=== PATIENT | female | born 1990 | race Caucasian/White ===

== ENCOUNTER 2019-12-28 17:06 | Emergency (ER) | payer OTHER, SELFPAY ==
[2019-12-28] MEDS: LORazepam 2 MG/ML VIAL IM (17:39)
[2019-12-28 17:45] VITALS: BP 111/71; PULSE 90; RESP 18; TEMP 37.1; O2SAT 96; BMI 20.9
[2019-12-28 17:52] VITALS: BP 111/71; PULSE 90; RESP 18; TEMP 37.1; O2SAT 96
[2019-12-28 17:58] VITALS: RESP 18
[2019-12-28 18:25] VITALS: BP 111/71; PULSE 90; RESP 18; TEMP 37.1; O2SAT 96
[2019-12-28 18:51] VITALS: RESP 18
--- NOTE | 2019-12-28 18:52 | PC.NURSE ---
Pt currently asleep. No signs of distress. Respirations even, nonlabored.
--- NOTE | 2019-12-28 20:01 | PC.NURSE ---
sleeping. had been medicated with ativan im at arrival for aggitation. first contact with patient at this time. sleeping. chest rise noted. skin pwd. pct states pt pulled awayduring attempt to obtain labs.
--- NOTE | 2019-12-28 20:57 | PC.NURSE ---
bhn unlikely to be seen until the am.
--- NOTE | 2019-12-28 21:25 | ED.PSYCH ---
HPI - Psych General Chief Complaint: Psychiatric Symptoms Stated Complaint: PSYCH Time Seen by Provider: 12/28/19 17:30 Source: EMS Mode of arrival: EMS Limitations: other ( under the influence of PCP) History of Present Illness HPI Narrative: 29-year-old female with reported history of PCP use as well as bipolar disorder, anxiety / depression who presents via EMS with a PD as core after acting erratically with admitted to using PCP use and she was noted to have her disease dog with her she was caring this dog around yesterday and today she continue with his behavior was picked up by PD and brought to emergency room for further evaluation. Patient has had similar types of visits in the past. Patient offers no medical complaints. Is acting very erratic and disorganized and tearful. Aside from the PCP use denies any alcohol use / recent injury or recent illness. MD complaint: substance abuse Onset (ago): day(s) Duration: intermittent History of same: Yes Relieving factors: therapy and other Exacerbating factors: drug use Context: recent drug abuse Associated symptoms: denies other symptoms Treatments prior to arrival: none Related Data Allergies Allergy/AdvReac Type Severity Reaction Status Date / Time No Known Allergies Allergy Unverified 11/19/19 17:25 sertraline AdvReac Unknown diarrhea Verified 07/21/19 00:00 Celexa Allergy Unknown Panic Uncoded 07/21/19 00:00 attacks Review of Systems Review of Systems: Limited due to her being under the influence of PCP otherwise denies any pain or discomfort. Offers no medical complaints. Yes all other systems are reviewed and are negative PMFSH Past Medical History Attestation statement: The following information was validated with the patient. Social History Social History Advance Directives: No Advance Directives Information Provided: Yes Physical Exam Vital Signs: Vital Signs: Vital Signs Temp Pulse Resp BP Pulse Ox 12/28/19 18:51 18 12/28/19 18:25 98.7 F 90 18 111/71 96 12/28/19 17:58 18 12/28/19 17:52 98.7 F 90 18 111/71 96 12/28/19 17:45 98.7 F 90 18 111/71 96 Body Mass Index 20.9 Reviewed Const: General: cooperative and healthy appearing; No acute distress or intoxicated appearing Nutritional Appearance: average body habitus Orientation/consciousness: patient oriented x3 HENMT: Head: Yes normal to inspection Ears: hearing grossly normal bilaterally Eyes: General: appearance normal, both eyes and all related structures Visual Joy: normal visual joy by confrontation Neck: Neck: Yes normal visual inspection and No tender Thyroid: Thyroid normal Chest: Chest palpation & inspection: normal inspection of the chest Resp: Effort & Inspection: normal respiratory effort Cardio: Jugular venous distension: no JVD GI: Inspection: Yes normal to inspection Percussion: Yes normal to percussion Auscultation: normal bowel sounds : General: Yes no CVA tenderness Back/Spine/Pelvis: Back: no CVA tenderness Skin: General skin exam: no rashes or lesions noted Neuro: General: patient oriented x3 Extrem: General: Yes normal to inspection Course Course Course Narrative: Acting very erratic and tearful. Appears to be responding to internal stimuli with similar type behavior in the past with her PCP Use. Exam atraumatic. Given 2 mg of IM Ativan for agitation/ safety. Medication restraint order placed. Continued redirection. Poses no flight risk at this time. Will check medical screening labs and obtain crisis evaluation once patient is sober. Reevaluation(s) Reevaluation #1: 2130 Has been resting comfortably in no acute distress. Case signed out to night PA at this time pending labs. MDM - Psych Restraints Face to Face Assessment: Face to Face Assessment: Current Situation: After assessment of the patient, a review of the pertinent medical record and a discussion with nursing staff, I feel the patient requires a restrain intervention. Reaction To: [] Medical Condition: [] Behavioral State: [] Continued Need: [] Discharge Plan Discharge Clinical Impression: Depression, Drug-induced psychotic disorder, Acute psychosis
--- NOTE | 2019-12-28 22:26 | PC.NURSE ---
Pt woke briefly for lab work then fell back asleep. Skin pwd. unlabored resp. unable to hold a conversation
[2019-12-28 22:30] LABS: MANUAL DIFF FLAG NO
[2019-12-28 22:34] LABS: Basophils Absolute Auto 0.1 X10*3/uL (0.0-0.2); Basophils Percent Auto 0.8 % (0-2); Eosinophils Absolute Auto 0.1 X10*3/uL (0.0-0.4); Eosinophils Percent Auto 1.8 % (0-4); Hematocrit 39.8 % (37-47); Hemoglobin 13.1 g/dl (12.0-16.0); Imm Gran Abs Auto 0.01 X10*3/uL (0.00-0.03); Imm Gran Pct Auto 0.2 % (0.0-0.4); Lymphocytes Absolute Auto 2.7 X10*3/uL (1.2-4.9); Lymphocytes Percent Auto 40.4 % (20-40); Mean Corpuscular HGB Conc 32.9 g/dl (31.0-35.0); Mean Corpuscular Hemoglobin 31.3 pg (27.0-33.0); Mean Platelet Volume 11.2 fL (9.4-12.3); Monocytes Absolute Auto 0.5 X10*3/uL (0.1-1.2); Monocytes Percent Auto 7.4 % (2-11); Neutrophils Absolute Auto 3.3 X10*3/uL (2.0-8.3); Neutrophils Percent Auto 49.4 % (45-73); Platelet Count 228 X10*3/uL (160-400); Red Blood Count 4.19 X10*6/uL (4.20-5.50); Red Cell Distribution Width 13.3 % (11.0-16.0); White Blood Count 6.6 X10*3/uL (4.8-10.8)
[2019-12-28 22:57] LABS: Ethanol < 10 mg/dL
[2019-12-28 23:00] LABS: Alanine Aminotransferase 22 U/L (0-31); Albumin Level 3.9 g/dL (3.5-5.0); Alkaline Phosphatase 54 U/L (39-117); Anion Gap 10 (12-20); Aspartate Amino Transferase 25 U/L (5-31); Bilirubin Total 0.5 mg/dL (0.0-1.0); Blood Urea Nitrogen 8 mg/dL (9-16); Calcium 8.6 mg/dL (8.4-10.2); Carbon Dioxide 26 mmol/L (22-29); Chloride 108 mmol/L (96-108); Creatinine Clr Calc Pharmacy 108.7; Estimated Glomerular Filt Rate > 60; Glucose Random 91 mg/dL (60-115); Potassium 4.3 mmol/l (3.3-5.1); Sodium 140 mmol/L (135-145); Total Protein 5.7 g/dL (6.5-8.0)
[2019-12-28 23:06] LABS: HCG Quantitative < 2 mIU/mL
[2019-12-29 00:15] VITALS: BP 106/67; PULSE 78; RESP 16; TEMP 36.4; O2SAT 98
--- NOTE | 2019-12-29 00:53 | PC.NURSE ---
KENNEYN meeting with patient at this time.
== END 2019-12-29 02:58 | disposition home or self-care (01) ==
PROVIDERS: Nurse Practitioner Primary Care; Emergency Provider Emergency Medicine Emergency Medical Services
DX: F33.1 Major depressive disorder, recurrent, moderate (principal); F19.959 Other psychoactive substance use, unspecified with psychoactive substance-induced psychotic disorder, unspecified; F16.10 Hallucinogen abuse, uncomplicated; F41.1 Generalized anxiety disorder; F43.0 Acute stress reaction; Z79.899 Other long term (current) drug therapy
CPT/HCPCS: 36415; 80053; 80320; 84702; 85025; 96372; 99284; 99285; J2060

== ENCOUNTER 2020-01-03 03:29 | Emergency (ER) | payer OTHER, SELFPAY ==
[2020-01-03 03:38] VITALS: BP 106/54; PULSE 77; RESP 16; TEMP 36.6; O2SAT 100; BMI 22.6
[2020-01-03 04:22] LABS: MANUAL DIFF FLAG NO
[2020-01-03 04:23] LABS: Basophils Percent Auto 0.5 % (0-2); Eosinophils Percent Auto 0.1 % (0-4); Hematocrit 39.6 % (37-47); Hemoglobin 12.9 g/dl (12.0-16.0); Imm Gran Abs Auto 0.02 X10*3/uL (0.00-0.03); Imm Gran Pct Auto 0.3 % (0.0-0.4); Lymphocytes Absolute Auto 1.2 X10*3/uL (1.2-4.9); Lymphocytes Percent Auto 14.6 % (20-40); Mean Corpuscular HGB Conc 32.6 g/dl (31.0-35.0); Mean Corpuscular Hemoglobin 31.2 pg (27.0-33.0); Mean Corpuscular Volume 95.7 fL (80-98); Mean Platelet Volume 11.6 fL (9.4-12.3); Monocytes Absolute Auto 0.4 X10*3/uL (0.1-1.2); Monocytes Percent Auto 5.4 % (2-11); Neutrophils Absolute Auto 6.3 X10*3/uL (2.0-8.3); Neutrophils Percent Auto 79.1 % (45-73); Platelet Count 233 X10*3/uL (160-400); Red Blood Count 4.14 X10*6/uL (4.20-5.50); Red Cell Distribution Width 13.1 % (11.0-16.0)
--- NOTE | 2020-01-03 04:26 | PC.NURSE ---
PT YELLING AT DR HARRINGTON WHO WAS IN EVALUATING PT IN THE NEXT ROOM OVER, PT HAD CELLPHONE OUT AND APPEARED TO BE RECORDING A VIDEO, SECURITY CALLED AND AT BEDSIDE TO INVESTIGATE, PT GETTING UPSET AND SPEAKING ABOUT HER MOTHER WHO RECENTLY PASSED ABOUT 1 MONTH AGO, PT CONTINUES TO MAKE CALLS WITH CELL PHONE AND IS VERBALLY AGGRESSIVE AND LOUD. SECURITY AND NURSE LUIS AT BEDSIDE TO DEESCALATE, PT AGREEABLE TO STAY OF RIGHT NOW WHILE WAITING FOR BLOOD DRAWS AND URINE SAMPLE.
--- NOTE | 2020-01-03 04:35 | PC.NURSE ---
PT WALKING OUT OF ROOM GETTING VERBALLY AGGRESSIVE ONCE AGAIN, PT YELLING TO NURSING STAFF STATING YOU GUYS WANT ME TO LEAVE, YOU DO NOT WANT ME HERE, I AM GOING TO LEAVE. LUIS RN SPEAKING WITH PT ALONG WITH [place]. PT DEESCALATING AND WANTING TO AMBULATE TO BATHROOM, SEEN WALKING WITH SLOW STEADY GAIT. PT ASSISTED TO ORDER PICKER INTO MESH UNDERWEAR AND PAD TO MEASURE BLEEDING. PT CONTINUES TO YELL ABOUT PAIN AND DISCOMFORT ALONG WITH I AM BLEEDING A LOT, I AM MISCARRYING!!
[2020-01-03 04:40] LABS: Alanine Aminotransferase 25 U/L (0-31); Albumin Level 4.2 g/dL (3.5-5.0); Alkaline Phosphatase 57 U/L (39-117); Anion Gap 15 (12-20); Aspartate Amino Transferase 30 U/L (5-31); Bilirubin Total 0.5 mg/dL (0.0-1.0); Blood Urea Nitrogen 9 mg/dL (9-16); Calcium 8.7 mg/dL (8.4-10.2); Carbon Dioxide 25 mmol/L (22-29); Chloride 104 mmol/L (96-108); Creatinine Clr Calc Pharmacy 112.1; Estimated Glomerular Filt Rate > 60; Glucose Random 100 mg/dL (60-115); Potassium 3.6 mmol/l (3.3-5.1); Sodium 140 mmol/L (135-145); Total Protein 6.2 g/dL (6.5-8.0)
[2020-01-03 04:47] LABS: HCG Quantitative < 2 mIU/mL
[2020-01-03] MEDS: Ibuprofen 400 MG TABLET PO (05:09)
[2020-01-03] MEDS: Acetaminophen 325 MG TABLET 975 MG PO (05:10)
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
== END 2020-01-03 05:22 | disposition home or self-care (01) ==
PROVIDERS: Emergency Provider Student in an Organized Health Care Education/Training Program; PCP Internal Medicine
DX: N94.4 Primary dysmenorrhea (principal)
CPT/HCPCS: 36415; 80053; 84702; 85025; 99283

== ENCOUNTER 2020-01-07 16:11 | Inpatient (IN) | payer OTHER, SELFPAY ==
[2020-01-07 16:31] VITALS: BP 114/55; PULSE 76; RESP 20; TEMP 36.6; O2SAT 100; BMI 21.6
[2020-01-07 16:35] VITALS: BP 114/55; PULSE 76; RESP 20; TEMP 36.6; O2SAT 100
[2020-01-07 17:29] LABS: UPreg QC Valid YES; Urine Pregnancy NEGATIVE (NEGATIVE)
[2020-01-07 17:47] LABS: Amphetamine Screen Urine Not Detected (Not Detect); Barbiturates, Urine Not Detected (Not Detect); Benzodiazepines Screen Urine Not Detected (Not Detect); Cannabinoid Screen Urine POSITIVE (Not Detect); Cocaine Screen Urine Not Detected (Not Detect); Opiate Screen Urine Not Detected (Not Detect); Phencyclidine Screen Urine POSITIVE (Not Detect)
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
[2020-01-07] MEDS: LORazepam 1 MG TABLET 2 MG PO (18:10)
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
--- NOTE | 2020-01-07 19:14 | PC.NURSE ---
Report received. PT is walking around the unit, tearful and fearful at this time. Talking to staff about being afraid of leaving here and what will happen to her if she does. No specifics were mentioned.
--- NOTE | 2020-01-07 20:32 | PC.NURSE ---
[facility] faxed and called. [facility] stated that someone would be here to see the patient after 11 PM.
[2020-01-07 22:29] VITALS: BP 109/61; PULSE 60; RESP 16; TEMP 36.1; O2SAT 95
[2020-01-08 00:24] VITALS: BP 100/56; PULSE 78; RESP 18; TEMP 36.3; O2SAT 98
--- NOTE | 2020-01-08 00:26 | PC.NURSE ---
PT woke up from sleep. Tearful and states that she is fearful for the safety of her father.
--- NOTE | 2020-01-08 02:08 | ECG_ITS ---
Test Reason : BASELINE Blood Pressure : / mmHG Vent. Rate : 069 BPM Atrial Rate : 069 BPM P-R Int : 138 ms QRS Dur : 076 ms QT Int : 364 ms P-R-T Axes : 000 035 024 degrees QTc Int : 390 ms Normal sinus rhythm Early repolarization Normal ECG When compared with ECG of 30-JUL-2015 15:48, No significant change was found Referred By: Pamela Garber Electronically Signed By:YEMI JAIME MD
[2020-01-08 06:25] LABS: SARS COV2 PCR INHOUSE NEGATIVE (Negative)
--- NOTE | 2020-01-08 06:29 | PC.NURSE ---
PT woke up from sleep and immediately approached the door of room 2. PT was asked to move away from the door and responded with some resistance. PT was able to be redirected after a quick conversation. PT waiting to be transferred to .
[2020-01-08 06:41] VITALS: BP 149/78; PULSE 86; RESP 18; TEMP 36.3; O2SAT 97
--- NOTE | 2020-01-08 09:12 | HO.PSYADMNOT ---
HPI Chief Complaint: Psychosis Diagnostics Vital Signs (24Hr): Vital Signs - 24 hr 01/07/20 16:31 01/07/20 16:35 01/07/20 22:29 Temperature 97.8 F 97.8 F 97 F Pulse Rate 76 76 60 Respiratory Rate 20 20 16 Blood Pressure 114/55 L 114/55 L 109/61 Pulse Oximetry 100 100 95 01/08/20 00:24 01/08/20 06:41 Temperature 97.3 F 97.3 F Pulse Rate 78 86 Respiratory Rate 18 18 Blood Pressure 100/56 L 149/78 H Pulse Oximetry 98 97 Body Mass Index 21.6 Labs Labs: Laboratory Results - last 48 hr 01/07/20 01/07/20 01/08/20 16:59 17:00 04:48 Urine Test NEGATIVE Urine Opiates Screen Not Detected Ur Barbiturates Screen Not Detected Ur Phencyclidine Scrn POSITIVE H Ur Amphetamines Screen Not Detected U Benzodiazepines Scrn Not Detected Urine Cocaine Screen Not Detected U Marijuana (THC) Screen POSITIVE H Coronavirus (PCR) NEGATIVE Meds/Allergies Meds Home Medications Medication Instructions Recorded Confirmed Type No Known Home Meds 01/07/20 01/07/20 History Allergies Allergies Allergy/AdvReac Type Severity Reaction Status Date / Time No Known Allergies Allergy Unverified 11/19/19 17:25 sertraline AdvReac Unknown diarrhea Verified 07/21/19 00:00 Celexa Allergy Unknown Panic Uncoded 07/21/19 00:00 attacks
[2020-01-08 09:15] VITALS: BP 103/55; PULSE 81; TEMP 36.3
[2020-01-08] MEDS: Benztropine Mesylate 2 MG/2 ML VIAL 1 MG IM (10:48)
[2020-01-08] MEDS: Haloperidol Lactate 5 MG/ML VIAL IM (10:48)
[2020-01-08] MEDS: LORazepam 2 MG/ML VIAL IM (10:49)
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
--- NOTE | 2020-01-08 14:53 | PC.NURSE ---
AT 1130 PT BEGAN RUNNING UP AND DOWN THE UNIT JUMPING AND SWINGING ARMS. PT SCREAMING , GET ME THE F-CK OFF THIS UNIT. SEVERAL ATTEMPTS TO ASSIST PT TO A QUIET SPACE FOR PROCESS WERE MADE. PT UNABLE TO TAKE ANY REDIRECTION. PT CONTINUED TO SWEAR AND THREATEN STAFF TO GET OFF OFF THE UNIT. PT BRINGING UP TRAUMA AND YELLING AT STAFF, YOU DON'T KNOW ANYTHING'. PT PUNCHING DOORS, AGGRESSIVELY POSTURING AT STAFF. SECURITY NOTIFIED AND ON THE UNIT.PT SCARING OTHER PATIENTS AND CONTINUED TO RUN AND JUMP IN THE HALLWAY SWINGING ARMS AND FEET IN AN UNCONTROLLED ANGER. SECURITY ABLE TO TALK TO PT IN THE PRIVACY OF HER ROOM. PT THEN YELLING ABOUT HER TRAUMA, PULLING OFF HER PANTS SHOWING STAFF HER BRUISES AND THE STITCHES IN HER LIP. AWARE AND ORDERED MEDICATION RESTRAINT; HALDOL 5MG,ATIVAN 2, AND 1 COGENTIN IM. PT WAS INFORMED AND SAID, GIVE ME THE SHOT. PT TOOK IM WITHOUT DIFFICULTY. PT TEARFUL AND DISCUSSING TRAUMA. PT CALMED ,ATE HER MEAL AND RESTED THE REMAINDER OF THE SHIFT.
[2020-01-08 18:00] VITALS: RESP 18
[2020-01-09] MEDS: LORazepam 1 MG TABLET PO ×2 (07:56→17:39)
[2020-01-09] MEDS: Acetaminophen 325 MG TABLET 650 MG PO (08:16)
[2020-01-09 08:38] VITALS: BP 126/59; PULSE 79; TEMP 36.7; O2SAT 97
[2020-01-09] MEDS: Haloperidol Lactate 5 MG/ML VIAL IM ×2 (10:23→15:15)
[2020-01-09] MEDS: Benztropine Mesylate 2 MG/2 ML VIAL 1 MG IM ×2 (10:24→15:15)
[2020-01-09] MEDS: LORazepam 2 MG/ML VIAL IM ×2 (10:24→15:15)
--- NOTE | 2020-01-09 15:08 | P.PNPSI_ITS ---
Subjective Subjective Date of Service: 01/09/20 Reason For Visit: Psychosis Subjective Notes: Section 12B Interim History: Deanna was loud, agitated and yelling for most of the morning. She was insistent that she needed to leave immediately, screaming about her chi ldren and that no body cares. She was threatening toward staff and this pattern chart writer at around 10am. She is unable to be redirected, running up and down the hallways and scaring other patients. As a result of this behavior, she received Haldol 5mg im, Ativan 2mg im and Cogentin 1mg im. She was seen within half an hour. She was slightly calmer, but still focuses on leaving the hospital right away. Medication Compliance: No Side effects from medications: No Attending Groups: No Review of Systems Acute medical concerns: No Medical Review of Systems: unchanged Mental Status Exam Mental Status Exam Patient Appearance: Inappropriate and Unkempt Patient Orientation: Person Level of Consciousness: Restless, Inappropriate and Combative Patient Behavior: Aggressive, Restless, Belligerent and Impulsive Mood Description: Hostile and Labile Affect Description: Angry Ability to Follow Directions: Poor Speech Pattern: Loud, Pressured and Includes Profanity Hallucinations: None Delusions: Paranoid Ideation, Present (Someone is coming after her children) and Ideas of Reference Thought Process: Rumination Thought Content: positive for Disorganized and positive for Suicidal Ideation (running into traffic) Abnormal Motor Activity Signs and Symptoms: Aggression Judgement: Poor Diagnostics Vital Signs (24Hr): Vital Signs - 24 hr 01/08/20 18:00 01/09/20 08:38 Temperature 98.1 F Pulse Rate 79 Respiratory Rate 18 Blood Pressure 126/59 L Pulse Oximetry 97 Body Mass Index 21.6 Labs Labs: Laboratory Results - last 48 hr 01/07/20 01/07/20 01/08/20 16:59 17:00 04:48 Urine Test NEGATIVE Urine Opiates Screen Not Detected Ur Barbiturates Screen Not Detected Ur Phencyclidine Scrn POSITIVE H Ur Amphetamines Screen Not Detected U Benzodiazepines Scrn Not Detected Urine Cocaine Screen Not Detected U Marijuana (THC) Screen POSITIVE H Coronavirus (PCR) NEGATIVE Medications Medications Current Medications Generic Name Dose Route Start Last Admin Trade Name Freq PRN Reason Stop Dose Admin Acetaminophen 650 mg 01/08/20 09:13 01/09/20 08:16 Acetaminophen 325 Mg Tablet PO 650 mg Q6H PRN Administration Headache/Pain Mild Scale (1-3) Al Hydroxide/Mg Hydroxide 30 ml 01/08/20 09:13 Magnesium Hydrox/Alum Hydrox 30 Ml Oral.Susp PO Q6H PRN Heartburn/Nausea Benztropine Mesylate 1 mg 01/09/20 15:05 Benztropine Mesylate 2 Mg/2 Ml Vial IM 01/09/20 15:06 STAT STA Haloperidol 5 mg 01/09/20 12:00 01/09/20 14:05 Haloperidol 5 Mg Tablet PO Not Given BID VINCE Haloperidol 5 mg 01/09/20 11:51 Haloperidol 5 Mg Tablet PO Q4H PRN Anxiety Haloperidol Lactate 5 mg 01/09/20 15:05 Haloperidol Lactate 5 Mg/Ml Vial IM 01/09/20 15:06 STAT STA Hydroxyzine HCl 25 mg 01/08/20 09:13 Hydroxyzine Hcl 25 Mg Tablet PO BEDTIME PRN Anxiety Ibuprofen 600 mg 01/09/20 12:30 Ibuprofen 600 Mg Tablet PO Q6H PRN Pain, Moderate (Pain Scale 4-6 Lorazepam 1 mg 01/08/20 06:43 01/09/20 07:56 Lorazepam 1 Mg Tablet PO 1 mg RQ4H PRN Administration Anxiety Lorazepam 1 mg 01/09/20 21:00 Lorazepam 1 Mg Tablet PO BID VINCE Lorazepam 1 mg 01/09/20 11:51 Lorazepam 1 Mg Tablet PO Q4H PRN Anxiety Lorazepam 2 mg 01/09/20 15:05 Lorazepam 2 Mg/Ml Vial IM 01/09/20 15:06 STAT STA Magnesium Hydroxide 30 ml 01/08/20 09:13 Milk Of Magnesia 30 Ml Oral.Susp PO DAILY PRN Constipation Trazodone HCl 50 mg 01/08/20 09:13 Trazodone Hcl 50 Mg Tablet PO BEDTIME PRN Insomnia Allergies Allergies Allergy/AdvReac Type Severity Reaction Status Date / Time No Known Allergies Allergy Unverified 11/19/19 17:25 sertraline AdvReac Unknown diarrhea Verified 07/21/19 00:00 Celexa Allergy Unknown Panic Uncoded 07/21/19 00:00 attacks Assessment & Plan Assessment & Plan (1) PCP (phencyclidine) abuse: Status: Acute Code(s): F16.10 - Hallucinogen abuse, uncomplicated Assessment and Plan: Haldol 5mg po bid Ativan 1mg po bid Im restraint if needed for safety (2) Acute psychosis: Status: Acute Code(s): F23 - Brief psychotic disorder Greater than 50% of the session was spent on counseling and/or coordination of care Patient educated on: diagnosis, medication risk/benefits and substance abuse Informed Consent: does not understand Reason for contiued inpatient stay Substantial Risk for: harm to self and harm to others
[2020-01-09 15:30] VITALS: BP 119/58; PULSE 101; RESP 16; TEMP 36.7
[2020-01-09 15:45] VITALS: RESP 16
[2020-01-09 16:00] VITALS: BP 114/59; PULSE 82; RESP 16; TEMP 36.9; O2SAT 100
--- NOTE | 2020-01-09 16:13 | PM.EVENT ---
Event Note Date of Service: 01/09/2020 Event Note: [employer] Message received from VIOLET Kirk @ 345pm that patient needed to be seen prior to 415pm as she was given chemical restraint. Pt seen and examined on M5 at 410pm. In her room initially. Examined in the medical examination room with VIOLET Kirk present. Pt denies any medical complaints. Denies any pain Exam Gen - NAD HEENT - PERRL CVS - S1S2 Lungs - clear, no distress Abd - soft, non-tender Neuro - no focal deficits A/P 29 yo F admitted on M5 under section 12b for psychosis. Hospitalist called to see patient for chemical restaraint. At this time, pt seem medically stable without concerns. Continue monitoring her per protocol.
[2020-01-09 16:15] VITALS: BP 113/63; PULSE 84; RESP 16; TEMP 36.7; O2SAT 97
[2020-01-09] MEDS: Flu Vacc QS2020-21(6mos up)/PF 0.5 ML SYRINGE IM (17:12)
[2020-01-09 17:21] VITALS: BP 94/52; PULSE 60; TEMP 36.3
[2020-01-09] MEDS: HaloperidoL 5 MG TABLET PO (17:39)
--- NOTE | 2020-01-09 17:57 | PC.NURSE ---
AT 0700 WHEN THIS REGULATORY SUBMISSIONS SPECIALIST CAME ON TO THE UNIT, PT WAS IN THE HALLWAY YELLING AT STAFF THAT SHE WANTED TO BE DISCHARGED, STATING, BECAUSE YOU BITCHES CAN'T DO YOUR JOBS AND CARE ABOUT THE FACT I'M LOSING MY HOUSING AND I NEED TO GET THE FUCK OUT OF HERE AND YO NEED TO MAKE THAT HAPPEN OR YOU'RE GOING TO SEE THAT DOOR SMASHED DOWN AND SOMEONE'S GETTING HURT ...PT CONINUED ON THIS RHETORIC INTERMITTENLY FOR THREE HOURS, AT TIMES SHE WAS ABLE TO BE RE-DIRECTED AND TO KEEP FROM YELLING, SHE ACCEPTED A PRN MEDICATION WITH LITTLE EFFECT. PT BECAME MORE AGITATED AFTER A CONVERSATION WITH THE DOCTOR, AT WHICH POINT SHE BECAME VERBALLY THREATENING TO THE DOCTOR AND STATED, I'M NOT LETTING YOU LEAVE UNTIL I FUCKING LEAVE . PT WOULD NOT BE RE-DIRECTED OR ACCEPT ORAL MEDICATIONS, PT CAUSING MUCH ANXIETY IN THE MILEU, GIVEN HALDOL 5MG, ATIVAN 2MG AND COJENTIN 1MG ALL IM AND WITH GOOD EFFECT. PT SLEPT FOR ONE HOUR, REFUSED ALL VITAL SIGNS, GOT UP, YELLED AT STAFF FOR 20 MINUTES AND RETURED TO BED TO SLEEP. SHE WAS LATER GIVEN REFRESHMENTS AND LUNCH WHICH SHE ATE.
[2020-01-10] MEDS: Ibuprofen 600 MG TABLET PO (04:44)
[2020-01-10] MEDS: LORazepam 1 MG TABLET PO ×4 (04:45→22:40)
[2020-01-10] MEDS: HaloperidoL 5 MG TABLET PO ×4 (04:45→22:41)
[2020-01-10 05:45] VITALS: BP 86/49; PULSE 80; RESP 16; TEMP 36.6
[2020-01-10] MEDS: LORazepam 2 MG/ML VIAL IM (11:35)
[2020-01-10] MEDS: Benztropine Mesylate 2 MG/2 ML VIAL 1 MG IM (11:35)
[2020-01-10] MEDS: Haloperidol Lactate 5 MG/ML VIAL IM (11:35)
--- NOTE | 2020-01-10 11:46 | HO.PSYCHPN ---
Subjective Subjective Date of Service: 01/10/20 Reason For Visit: Psychosis Interim History: Deanna has continued to be very volatile with angry and explosive outbursts about the desire to get out of the hospital. She started screaming that her father has been killed and she could not calm enough to have a rational conversation. She did give the phone number of her father's GF to staff. The GF confirmed that she has no knowledge that Deanna's father has been harmed and that she saw him at 11pm last night. She agreed to call the unit next time she sees him. Lela Buckley RN was able to leave a message for another collateral contact. In the meantime Deanna continued to escalate and was leaning over the nurses station menacingly. Because of her incessant yelling, her threats and her refusing to move away from the desk, she was in need of medication restraint. She was seen half hour after restraint and was significantly calmer. Medication Compliance: Intermittent Side effects from medications: No Attending Groups: No Review of Systems Acute medical concerns: No Medical Review of Systems: unchanged Mental Status Exam Mental Status Exam Patient Appearance: Inappropriate and Unkempt Patient Orientation: Person Level of Consciousness: Restless, Inappropriate and Combative Patient Behavior: Aggressive, Restless, Belligerent and Impulsive Mood Description: Hostile and Labile Affect Description: Angry Ability to Follow Directions: Poor Speech Pattern: Loud, Pressured and Includes Profanity Hallucinations: None Delusions: Paranoid Ideation, Present (Someone is coming after her children) and Ideas of Reference Thought Process: Rumination Thought Content: positive for Disorganized, positive for Suicidal Ideation (running into traffic) and positive for Homicidal Ideation Abnormal Motor Activity Signs and Symptoms: Aggression Judgement: Poor Diagnostics Vital Signs (24Hr): Vital Signs - 24 hr 01/09/20 15:30 01/09/20 15:45 01/09/20 16:00 Temperature 98.1 F 98.5 F Pulse Rate 101 H 82 Respiratory Rate 16 16 16 Blood Pressure 119/58 L 114/59 L Pulse Oximetry 100 01/09/20 16:15 01/09/20 17:21 01/10/20 05:45 Temperature 98.0 F 97.3 F 97.8 F Pulse Rate 84 60 80 Respiratory Rate 16 16 Blood Pressure 113/63 94/52 L 86/49 L Pulse Oximetry 97 Body Mass Index 21.6 Medications Medications Current Medications Generic Name Dose Route Start Last Admin Trade Name Freq PRN Reason Stop Dose Admin Acetaminophen 650 mg 01/08/20 09:13 01/09/20 08:16 Acetaminophen 325 Mg Tablet PO 650 mg Q6H PRN Administration Headache/Pain Mild Scale (1-3) Al Hydroxide/Mg Hydroxide 30 ml 01/08/20 09:13 Magnesium Hydrox/Alum Hydrox 30 Ml Oral.Susp PO Q6H PRN Heartburn/Nausea Haloperidol 5 mg 01/09/20 12:00 01/10/20 09:52 Haloperidol 5 Mg Tablet PO 5 mg BID VINCE Administration Haloperidol 5 mg 01/09/20 11:51 01/10/20 04:45 Haloperidol 5 Mg Tablet PO 5 mg Q4H PRN Administration Anxiety Hydroxyzine HCl 25 mg 01/08/20 09:13 Hydroxyzine Hcl 25 Mg Tablet PO BEDTIME PRN Anxiety Ibuprofen 600 mg 01/09/20 12:30 01/10/20 04:44 Ibuprofen 600 Mg Tablet PO 600 mg Q6H PRN Administration Pain, Moderate (Pain Scale 4-6 Lorazepam 1 mg 01/08/20 06:43 01/09/20 17:39 Lorazepam 1 Mg Tablet PO 1 mg RQ4H PRN Administration Anxiety Lorazepam 1 mg 01/09/20 21:00 01/10/20 09:51 Lorazepam 1 Mg Tablet PO 1 mg BID VINCE Administration Lorazepam 1 mg 01/09/20 11:51 01/10/20 04:45 Lorazepam 1 Mg Tablet PO 1 mg Q4H PRN Administration Anxiety Magnesium Hydroxide 30 ml 01/08/20 09:13 Milk Of Magnesia 30 Ml Oral.Susp PO DAILY PRN Constipation Trazodone HCl 50 mg 01/08/20 09:13 Trazodone Hcl 50 Mg Tablet PO BEDTIME PRN Insomnia Allergies Allergies Allergy/AdvReac Type Severity Reaction Status Date / Time No Known Allergies Allergy Unverified 11/19/19 17:25 sertraline AdvReac Unknown diarrhea Verified 07/21/19 00:00 Celexa Allergy Unknown Panic Uncoded 07/21/19 00:00 attacks Assessment & Plan Assessment & Plan (1) Acute psychosis: Status: Acute Code(s): F23 - Brief psychotic disorder (2) PCP (phencyclidine) abuse: Status: Acute Code(s): F16.10 - Hallucinogen abuse, uncomplicated (3) Cannabis abuse with cannabis-induced disorder: Status: Acute Code(s): F12.19 - Cannabis abuse with unspecified cannabis-induced disorder Assessment and Plan: Remains belligerent and insisting that she is in danger. Thus far we have found no evidence to support this. Haldol 5mg im, Ativan 2mg im and Cogentin 1mg im given as restraint. CT haldol and ativan as standing orders Greater than 50% of the session was spent on counseling and/or coordination of care
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
[2020-01-10] MEDS: Acetaminophen 325 MG TABLET 650 MG PO (22:41)
[2020-01-11 05:39] VITALS: BP 86/54; PULSE 66; RESP 16; TEMP 36.8; O2SAT 100
--- NOTE | 2020-01-11 07:11 | HO.PSYCHPN ---
Subjective Subjective Reason For Visit: Psychosis Diagnostics Vital Signs (24Hr): Vital Signs - 24 hr 01/11/20 05:39 Temperature 98.3 F Pulse Rate 66 Respiratory Rate 16 Blood Pressure 86/54 L Pulse Oximetry 100 Body Mass Index 21.6 Medications Medications Current Medications Generic Name Dose Route Start Last Admin Trade Name Freq PRN Reason Stop Dose Admin Acetaminophen 650 mg 01/08/20 09:13 01/10/20 22:41 Acetaminophen 325 Mg Tablet PO 650 mg Q6H PRN Administration Headache/Pain Mild Scale (1-3) Al Hydroxide/Mg Hydroxide 30 ml 01/08/20 09:13 Magnesium Hydrox/Alum Hydrox 30 Ml Oral.Susp PO Q6H PRN Heartburn/Nausea Haloperidol 5 mg 01/09/20 12:00 01/10/20 22:41 Haloperidol 5 Mg Tablet PO 5 mg BID VINCE Administration Haloperidol 5 mg 01/09/20 11:51 01/10/20 14:40 Haloperidol 5 Mg Tablet PO 5 mg Q4H PRN Administration Anxiety Hydroxyzine HCl 25 mg 01/08/20 09:13 Hydroxyzine Hcl 25 Mg Tablet PO BEDTIME PRN Anxiety Ibuprofen 600 mg 01/09/20 12:30 01/10/20 04:44 Ibuprofen 600 Mg Tablet PO 600 mg Q6H PRN Administration Pain, Moderate (Pain Scale 4-6 Lorazepam 1 mg 01/08/20 06:43 01/10/20 14:39 Lorazepam 1 Mg Tablet PO 1 mg RQ4H PRN Administration Anxiety Lorazepam 1 mg 01/09/20 21:00 01/10/20 22:40 Lorazepam 1 Mg Tablet PO 1 mg BID VINCE Administration Lorazepam 1 mg 01/09/20 11:51 01/10/20 04:45 Lorazepam 1 Mg Tablet PO 1 mg Q4H PRN Administration Anxiety Magnesium Hydroxide 30 ml 01/08/20 09:13 Milk Of Magnesia 30 Ml Oral.Susp PO DAILY PRN Constipation Trazodone HCl 50 mg 01/08/20 09:13 Trazodone Hcl 50 Mg Tablet PO BEDTIME PRN Insomnia Allergies Allergies Allergy/AdvReac Type Severity Reaction Status Date / Time No Known Allergies Allergy Unverified 11/19/19 17:25 sertraline AdvReac Unknown diarrhea Verified 07/21/19 00:00 Celexa Allergy Unknown Panic Uncoded 07/21/19 00:00 attacks Assessment & Plan Greater than 50% of the session was spent on counseling and/or coordination of care
[2020-01-11] MEDS: HaloperidoL 5 MG TABLET PO (08:41)
[2020-01-11] MEDS: LORazepam 1 MG TABLET PO (08:41)
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
== END 2020-01-11 11:13 | disposition home or self-care (01) | DRG 885 ==
LOC: HO.ED 01-08 02:26 → HO.PM5 01-08 06:44
PROVIDERS: Nurse Practitioner Family; Admitting Provider Psychiatry & Neurology Psychiatry; Emergency Provider Internal Medicine; Visit Provider Psychiatry & Neurology Psychiatry
DX: F23 Brief psychotic disorder (principal); F16.10 Hallucinogen abuse, uncomplicated; Z23 Encounter for immunization; Z20.828 Contact with and (suspected) exposure to other viral communicable diseases; F12.10 Cannabis abuse, uncomplicated; F17.210 Nicotine dependence, cigarettes, uncomplicated; Z71.6 Tobacco abuse counseling
CPT/HCPCS: 80307; 81025; 90686; 93005; 99223; 99239; 99284; 99285; J0515; J2060; U0003

== ENCOUNTER 2020-01-11 15:32 | Emergency (ER) | payer OTHER, SELFPAY ==
[2020-01-11 15:51] VITALS: BP 105/62; PULSE 100; PULSE 105; RESP 16; TEMP 36.6; O2SAT 97; O2SAT 98; BMI 20.7
--- NOTE | 2020-01-11 16:33 | ED_ITS ---
HPI - Overdose General Chief Complaint: ETOH/Substance Use Stated Complaint: substance abuse Time Seen by Provider: 01/11/20 16:33 Source: EMS Mode of arrival: EMS Limitations: no limitations History of Present Illness HPI Narrative: Acting bizarre after using PCP. Treatments Prior to Arrival: none Related Data Previous Rx's Medication Instructions Recorded benztropine 1 mg PO Q6-8H PRN 30 Days #30 tab 01/11/20 haloperidol 5 mg PO Q6-8H PRN 30 Days #30 tab 01/11/20 Allergies Allergy/AdvReac Type Severity Reaction Status Date / Time No Known Allergies Allergy Verified 01/11/20 16:10 sertraline AdvReac Unknown diarrhea Verified 07/21/19 00:00 Celexa Allergy Unknown Panic Uncoded 07/21/19 00:00 attacks Review of Systems Review of Systems: Constitutional: No Weight loss, No Fever, No Chills, No Night Sweats, No Fatigue, No Malaise ENT/Mouth: No Hearing loss, No Ear Pain, No Nasal Congestion, No Sinus Pain, No Hoarseness, No sore throat, No Rhinorrhea, No Swallowing Difficulty Eyes: No Eye Pain, No Swelling, No Redness, No Foreign Body, No Discharge, No Vision Changes Cardiovascular: No Chest Pain, No SOB, No Dyspnea on Exertion, No Orthopnea, No Edema, No Palpitations Respiratory: No Cough, No Sputum, No Wheezing, No Smoke Exposure, No Dyspnea Gastrointestinal: No Nausea, No Vomiting, No Diarrhea, No Constipation, No abdominal Pain, No Hematochezia, No Melena Genitourinary: no irregular bleeding, No Dysuria, No Urinary Frequency, No Hematuria, No Urinary Incontinence, No Urgency, No Flank Pain, No Urinary Flow Changes, No Hesitancy Musculoskeletal: No joint pain, No Myalgias, No Joint Swelling Skin: No Skin Lesions, No rash Neuro: No Weakness, No Numbness, No Paresthesias, No Loss of Consciousness, No Dizziness, No Headache Psych: No Anxiety/Panic, No Depression, No SI/HI/AH/VH Heme/Lymph: No Bruising, No Bleeding,No Lymphadenopathy Endocrine: No Polyuria, No Polydipsia, No Temperature Intolerance Yes all other systems are reviewed and are negative [facility] Past Medical History Attestation statement: The following information was validated with the patient. Medical History (Updated 01/11/20 @ 16:35 by Omar Patten NP) Bipolar disorder, unspecified Social History Social History Household Members: None Housing: Apartment Alcohol intake: unknown Smoking Status: Current every day smoker Tobacco Type: Cigarette Packs Per Day: 10 Cigarettes Per Day: 0.5 Second Hand Smoke Exposure: No Substance Use Type: Marijuana Advance Directives: No Advance Directives Information Provided: Yes service: No Sexual orientation: Straight/Heterosexual Physical Exam Vital Signs: Vital Signs: Last Vital Signs Temp 97.9 F 01/11/20 15:51 Pulse 100 01/11/20 15:51 Resp 16 01/11/20 15:51 BP 105/62 01/11/20 15:51 Pulse Ox 98 01/11/20 15:51 Body Mass Index 20.7 Reviewed Const: General: cooperative and healthy appearing; No acute distress or intoxicated appearing Nutritional Appearance: average body habitus Orientation/consciousness: patient oriented x3 HENMT: Head: Yes normal to inspection Ears: hearing grossly normal bilaterally Eyes: General: appearance normal, both eyes and all related structures Visual Joy: normal visual joy by confrontation Neck: Neck: Yes normal visual inspection and No tender Thyroid: Thyroid normal Chest: Chest palpation & inspection: normal inspection of the chest Resp: Effort & Inspection: normal respiratory effort Cardio: Jugular venous distension: no JVD GI: Inspection: Yes normal to inspection Percussion: Yes normal to percussion Auscultation: normal bowel sounds : General: Yes no CVA tenderness Back/Spine/Pelvis: Back: no CVA tenderness Skin: General skin exam: no rashes or lesions noted Neuro: General: patient oriented x3 Extrem: General: Yes normal to inspection Course Course Course Narrative: With above history presenting ?acting bizarre? after using PCP. Patient admits to using PCP. Use for recreational purposes. Patient with previous similar presentation after using PCP no injury or fall. Patient actually is calm and cooperative. She intermittently says bizarre stuff but compared to her previous visit she is much more cooperative. She denies any SI or HI. Patient observed in the ED does not want detox services she does not feel that she have a problem. She is requesting be discharged. Discharge Plan Discharge Clinical Impression: PCP (phencyclidine) abuse Patient Disposition: Home, Self-Care Instructions: Polysubstance Abuse (ED) Additional Instructions: Please stop doing illicit drugs This can cause serious harm to health and even Please go to detox Return if any concerns or worsening symptoms Thank you Prescriptions: No Action haloperidol 5 mg Tablet 5 mg PO Q6-8H PRN (Reason: Anxiety) 30 Days Qty: 30 RF: 0 benztropine 1 mg tablet 1 mg PO Q6-8H PRN (Reason: eps) 30 Days Qty: 30 RF: 0 Referrals: ED Physician,Generic [Physician] - 3 days Interventions: ED Discharge Assessment Last Done: 01/11/20 16:46 Discharge Date/Time: 01/11/20 17:13
--- NOTE | 2020-01-11 16:42 | PC.NURSE ---
pt continues pacing in the ed - speaking loudly she is clear and oriented she tolerated po intake plan for discharge
== END 2020-01-11 17:13 | disposition home or self-care (01) ==
PROVIDERS: Emergency Provider Emergency Medicine
DX: F16.10 Hallucinogen abuse, uncomplicated (principal); F17.210 Nicotine dependence, cigarettes, uncomplicated; Z79.899 Other long term (current) drug therapy; Z71.6 Tobacco abuse counseling
CPT/HCPCS: 99283

== ENCOUNTER 2020-01-20 06:44 | Emergency (ER) | payer OTHER, SELFPAY ==
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
[2020-01-20 07:01] VITALS: BP 127/64; PULSE 72; RESP 14; TEMP 36.7; O2SAT 97; BMI 26.2
[2020-01-20 07:23] VITALS: PULSE 72
--- NOTE | 2020-01-20 07:34 | PC.NURSE ---
pt given discharge paper work, asking if she can sit for a few more minutes.
== END 2020-01-20 08:28 | disposition home or self-care (01) ==
LOC: HO.ED 07:10
PROVIDERS: Emergency Provider Emergency Medicine
DX: F41.1 Generalized anxiety disorder (principal); F43.0 Acute stress reaction; F31.9 Bipolar disorder, unspecified; F17.210 Nicotine dependence, cigarettes, uncomplicated; Z71.6 Tobacco abuse counseling; Z79.899 Other long term (current) drug therapy
CPT/HCPCS: 99282; 99284

== ENCOUNTER → 2020-02-23 13:04 | Outpatient (BNVA) | payer OTHER, SELFPAY | PROVIDERS: PCP Physician Assistant; Visit Provider Advanced Practice Midwife | DX: Z30.09 Encounter for other general counseling and advice on contraception (principal); F17.210 Nicotine dependence, cigarettes, uncomplicated | CPT/HCPCS: 81003; 81025; 99212 ==

== ENCOUNTER → 2020-02-29 14:29 | Outpatient (BNVA) | payer OTHER, SELFPAY | PROVIDERS: PCP Physician Assistant; Visit Provider Advanced Practice Midwife | DX: Z30.42 Encounter for surveillance of injectable contraceptive (principal) | CPT/HCPCS: 81025; 96372; 99211; J1050 ==

== ENCOUNTER 2020-04-15 15:53 | Outpatient (REF) | payer OTHER, SELFPAY | END 2020-04-15 15:54 | disposition home or self-care (01) | LOC: HO.LAB 15:53 | PROVIDERS: Visit Provider Internal Medicine | DX: Z20.822 Contact with and (suspected) exposure to COVID-19 (principal) | CPT/HCPCS: 36415; C9803; U0003; U0005 ==

== ENCOUNTER 2020-04-25 14:15 | Outpatient (RCR) | payer OTHER, SELFPAY | END 2020-04-25 15:00 | disposition home or self-care (01) | LOC: HO.PHPA 14:15 | PROVIDERS: Visit Provider Psychiatry & Neurology Psychiatry | DX: F43.21 Adjustment disorder with depressed mood (principal); F10.20 Alcohol dependence, uncomplicated; F16.90 Hallucinogen use, unspecified, uncomplicated; Z63.4 Disappearance and death of family member | CPT/HCPCS: 90791 ==

== ENCOUNTER 2020-05-17 12:55 | Outpatient (REF) | payer OTHER, SELFPAY ==
--- NOTE | ~2020-05-17 | US_ITS ---
EXAMINATION: US SOFT TISSUE NECK CLINICAL INFORMATION: Mobile mass. COMPARISON: None TECHNIQUE: Ultrasound of the neck soft tissues is performed with high- frequency pandya-scale imaging and color Doppler. FINDINGS: THYROID BED: Prior thyroidectomy. No residual thyroid tissue demonstrated in the thyroid bed. No cystic or solid nodules demonstrated in the thyroid bed. Limited ultrasound imaging to the left mandible where patient feels a palpable mass is a clover shaped nonvascular lymph node. It measures 1.4 x 1.5 x 1.3 cm. In addition there are multiple bilateral lymph nodes. The largest lymph node left neck is 2.4 x 0.72 x 1.4 cm and the right neck lymph node is 2.2 x 0.95 x 1.5 cm. US/US soft tiss head and/or neck IMPRESSION: 1. Palpable mass left mandible is a clover shaped nonvascular lymph node. It does not have typical echo texture. There are bilateral multiple neck lymph nodes seen. 2. If clinically indicated further evaluation of the neck soft tissues and nodes may be performed with CT soft tissue neck with intravenous contrast.
== END 2020-05-17 12:56 | disposition home or self-care (01) ==
LOC: HO.US 12:55
PROVIDERS: PCP Physician Assistant; Visit Provider Physician Assistant
DX: R22.1 Localized swelling, mass and lump, neck (principal); Z30.42 Encounter for surveillance of injectable contraceptive
CPT/HCPCS: 76536; 96372; 99211; J1050

== ENCOUNTER 2020-06-16 18:40 | Emergency (ER) | payer OTHER, SELFPAY ==
[2020-06-16 19:03] VITALS: BP 118/74; BP 134/78; PULSE 65; PULSE 86; RESP 13; TEMP 37.2; O2SAT 97
--- NOTE | 2020-06-16 19:22 | PC.NURSE ---
Report given to VIOLET Britton. Pt currently changing into crisis hospital attire.
--- NOTE | 2020-06-16 19:40 | PC.NURSE ---
Pt ambulating to the bathroom to change into hospital attire. UA obtained and sent. Pt resting comfortably in NAD. Awaiting primary MD goodrich.
[2020-06-16 19:58] LABS: Appearance Urine CLEAR; Color Urine YELLOW; Glucose Urine UA NEG (NEG); Leukocyte Esterase Urine NEG (NEG); Nitrite Urine NEG (NEG); PH 6.5 (5.0-8.0); Specific Gravity - Urine 1.025 (1.005-1.025); Urine Blood NEG (NEG); Urine Ketones NEG (NEG); Urine Protein NEG (NEG-TRACE)
[2020-06-16 19:59] LABS: UPreg QC Valid YES; Urine Pregnancy NEGATIVE (NEGATIVE)
[2020-06-16 20:28] LABS: Amphetamine Screen Urine Not Detected (Not Detect); Barbiturates, Urine Not Detected (Not Detect); Benzodiazepines Screen Urine Not Detected (Not Detect); Cannabinoid Screen Urine POSITIVE (Not Detect); Cocaine Screen Urine Not Detected (Not Detect); Opiate Screen Urine Not Detected (Not Detect); Phencyclidine Screen Urine POSITIVE (Not Detect)
--- NOTE | 2020-06-16 20:58 | PC.NURSE ---
Pt calling this RN over, reporting left sided abdominal pain that has intensified since arrival @ ED. Pt also reporting diarrhea, denies nausea/vomiting. Pt denies urinary symptoms. Pt now denying SI, states I don't even know why I said that! I came for the abdominal pain. Awaiting primary MD joleen.
[2020-06-16] MEDS: Famotidine 20 MG TABLET PO (21:47)
[2020-06-16] MEDS: Magnesium Hydrox/Alum Hydrox 30 ML ORAL.SUSP PO (21:48)
[2020-06-16] MEDS: Lidocaine HCl Viscous 2 % 15 ML SOLUTION MUCOUS MEM (21:48)
[2020-06-16] MEDS: PHENobarb/Hyoscy/Atropine/Scop 10 ML ELIXIR PO (21:48)
[2020-06-16 22:16] LABS: MANUAL DIFF FLAG NO
[2020-06-16 22:19] LABS: Basophils Absolute Auto 0.1 X10*3/uL (0.0-0.2); Basophils Percent Auto 0.9 % (0-2); Eosinophils Absolute Auto 0.1 X10*3/uL (0.0-0.4); Eosinophils Percent Auto 2.1 % (0-4); Hematocrit 38.5 % (37-47); Hemoglobin 13.1 g/dl (12.0-16.0); Imm Gran Abs Auto 0.01 X10*3/uL (0.00-0.03); Imm Gran Pct Auto 0.1 % (0.0-0.4); Lymphocytes Absolute Auto 3.3 X10*3/uL (1.2-4.9); Lymphocytes Percent Auto 49.6 % (20-40); Mean Corpuscular Volume 93.9 fL (80-98); Mean Platelet Volume 11.1 fL (9.4-12.3); Monocytes Absolute Auto 0.4 X10*3/uL (0.1-1.2); Neutrophils Absolute Auto 2.8 X10*3/uL (2.0-8.3); Neutrophils Percent Auto 41.3 % (45-73); Platelet Count 215 X10*3/uL (160-400); Red Cell Distribution Width 12.4 % (11.0-16.0); White Blood Count 6.7 X10*3/uL (4.8-10.8)
[2020-06-16 22:25] LABS: INTERNATIONAL NORM RATIO 1.1 (0.9-1.1)
[2020-06-16 22:27] LABS: Partial Thromboplastin Time 29.2 SEC (24.1-38.0)
[2020-06-16 22:40] LABS: Ethanol < 10 mg/dL
[2020-06-16 22:44] LABS: Alanine Aminotransferase 12 U/L (0-31); Albumin Level 4.1 g/dL (3.5-5.0); Alkaline Phosphatase 46 U/L (39-117); Anion Gap 12 (12-20); Aspartate Amino Transferase 12 U/L (5-31); Bilirubin Direct 0.3 mg/dL (0.0-0.5); Bilirubin Total 0.7 mg/dL (0.0-1.0); Blood Urea Nitrogen 8 mg/dL (9-16); Calcium 8.9 mg/dL (8.4-10.2); Carbon Dioxide 25 mmol/L (22-29); Chloride 106 mmol/L (96-108); Creatinine Clr Calc Pharmacy 103.9; Estimated Glomerular Filt Rate > 60; Glucose Random 100 mg/dL (60-115); Lipase 23 U/L (8-78); Potassium 3.6 mmol/L (3.3-5.1); Sodium 139 mmol/L (135-145); Total Protein 6.1 g/dL (6.5-8.0)
[2020-06-16 23:03] LABS: COVID-19 Test Negative (Negative); IDNOW Serial# 9DD0AD1C
--- NOTE | 2020-06-16 23:44 | ED_ITS ---
HPI - Psych General Chief Complaint: Abdominal Pain Stated Complaint: abd pain Time Seen by Provider: 06/17/20 01:51 Source: patient Mode of arrival: ambulatory Limitations: no limitations History of Present Illness HPI Narrative: Patient presents to the ED for suicidal and depressed thoughts due to her kids being sick way by DCF. Patient's secondary complaint is abdominal pain and diarrhea. Patient states no fever, chills, coughing, flank pain, dysuria, hematuria, vaginal bleeding, or vaginal discharge Related Data Home Medications Medication Instructions Recorded Confirmed fluoxetine 10 mg capsule 10 mg PO DAILY 04/21/20 06/16/20 Previous Rx's Medication Instructions Recorded medroxyprogesterone 150 mg/mL 150 mg IM Q12W #1 ml 02/23/20 intramuscular suspension Allergies Allergy/AdvReac Type Severity Reaction Status Date / Time citalopram [From Celexa] Allergy Unknown panic Verified 06/16/20 19:11 attacks sertraline AdvReac Unknown diarrhea Verified 06/16/20 19:11 Review of Systems Review of Systems: Yes all other systems are reviewed and are negative Constitutional: Constitutional: Reports as per HPI and Reports no additional constitutional complaints Eyes: Eyes: Reports as per HPI and Reports no additional eye complaints ENT: Reports system reviewed and no additional complaints, except as documented and Reports as per HPI Cardiovascular: Cardiovascular: Reports as per HPI and Reports no additional cardiovascular complaints Respiratory: Respiratory: Reports as per HPI and Reports no additional respiratory complaints Gastrointestinal: Gastrointestinal: Reports as per HPI, Reports no additional gastrointestinal complaints, Reports abdominal pain and Reports diarrhea Genitourinary: Genitourinary: Reports no additional female genitourinary complaints and Reports as per HPI Musculoskeletal: Musculoskeletal: Reports no additional musculoskeletal complaints and Reports as per HPI Neurologic: Reports system reviewed and no additional complaints, except as documented and Reports as per HPI Psychiatric: Psychiatric: Reports no additional psychiatric complaints, Reports as per HPI and Reports suicidal ideation [facility] Past Medical History Medical History Bipolar disorder, unspecified control counseling Surgical History Status post debridement Family History Family History Father Medical history unknown Mother Medical history unknown Daughter In good health Sister In good health Brother No problems noted. Son No problems noted. Social History Social History Household Members: None Housing: Apartment Alcohol intake: former Smoking Status: Current every day smoker Tobacco Type: Cigarette Packs Per Day: 10 Cigarettes Per Day: 0.5 Second Hand Smoke Exposure: No Substance Use Type: Former Substance User and Marijuana Advance Directives: No Advance Directives Information Provided: No service: No Current occupational status: unemployed Sexual orientation: Straight/Heterosexual Physical Exam Vital Signs: Vital Signs: Last Vital Signs Temp 98.9 F 06/16/20 19:03 Pulse 65 06/16/20 19:03 Resp 13 06/16/20 19:03 BP 134/78 06/16/20 19:03 Pulse Ox 97 06/16/20 19:03 Body Mass Index 20.0 Const: General: cooperative, healthy appearing, comfortable, no acute distress, well developed, alert, awake and Physically active Orientation/cons ciousness: patient oriented x3 HENMT: Head: Yes normal to inspection, Yes No palpable skull fracture present, Yes normocephalic, Yes atraumatic and No abrasion Eyes: General: appearance normal, both eyes and all related structures Neck: Neck: Yes normal visual inspection, Yes full ROM, Yes no lymphadenopathy, Yes no meningeal signs, Yes trachea midline, Yes supple and No tender Chest: Chest palpation & inspection: normal inspection of the chest and normal palpation of entire chest wall Breast/axilla inspection: normal inspection of the breasts Resp: Effort & Inspection: normal respiratory effort and able to speak in complete sentences Auscultation: clear to auscultation bilaterally Cardio: Jugular venous distension: no JVD Heart sounds: S1 normal heart sound present and S2 normal heart sound present GI: Inspection: Yes normal to inspection and No abdominal wall ecchymosis Palpation (GI): Soft to palpation, not firm, Tenderness to palpation present (GI) (Mild) in the epigastrum, no guarding and not rigid : General: No CVA tenderness and Yes no CVA tenderness Back/Spine/Pelvis: Back: no CVA tenderness, No CVA tenderness and No back tenderness Skin: General skin exam: no rashes or lesions noted and elasticity normal Neuro: General: patient oriented x3, gait normal, no meningeal signs and CN's II-XI intact bilaterally Cranial nerves: Yes CN's II-XII intact bilaterally Extrem: General: Yes normal to inspection and Yes full ROM Psych: Appearance: grossly normal, well kempt and not disheveled Course Course Course Narrative: Patient will have labs drawn once medically cleared will have [facility] evaluation. Patient given GI cocktail. Reevaluation(s) Reevaluation #1: Patient abdominal pain improved and resolved after GI cocktail. Labs are normal. Awaiting [facility] evaluation. MDM - Psych MDM Narrative Medical decision making narrative: Depression Lab Data Result diagrams: 06/16/20 22:08 06/16/20 22:08 Labs: Lab Results 06/16/20 06/16/20 06/16/20 Range/Units 19:38 19:38 19:38 WBC (4.8-10.8) X10*3/uL RBC (4.20-5.50) X10*6/uL Hgb (12.0-16.0) g/dl Hct (37-47) % MCV (80-98) fL MCH (27.0-33.0) pg MCHC (31.0-35.0) g/dl RDW (11.0-16.0) % Plt Count (160-400) X10*3/uL MPV (9.4-12.3) fL Immature Gran % (Auto) (0.0-0.4) % Neut % (Auto) (45-73) % Lymph % (Auto) (20-40) % [place] % (Auto) (2-11) % Eos % (Auto) (0-4) % Baso % (Auto) (0-2) % Lymph # (Auto) (1.2-4.9) X10*3/uL [place] # (Auto) (0.1-1.2) X10*3/uL Eos # (Auto) (0.0-0.4) X10*3/uL Baso # (Auto) (0.0-0.2) X10*3/uL Abs Immat Gran (auto) (0.00-0.03) X10*3/uL Absolute Neuts (auto) (2.0-8.3) X10*3/uL Absolute Nucleated RBC (0.0-0.012) X10*3/uL Nucleated RBC % (auto) (0.0-0.2) /100WBC PT (10.8-13.0) SEC INR (0.9-1.1) APTT (24.1-38.0) SEC Sodium (135-145) mmol/L Potassium (3.3-5.1) mmol/L Chloride (96-108) mmol/L Carbon Dioxide (22-29) mmol/L Anion Gap (12-20) BUN (9-16) mg/dL Creatinine (0.5-1.4) mg/dL Estim Creat Clear Calc Estimated GFR Random Glucose (60-115) mg/dL Calcium (8.4-10.2) mg/dL Total Bilirubin (0.0-1.0) mg/dL Direct Bilirubin (0.0-0.5) mg/dL AST (5-31) U/L ALT (0-31) U/L Alkaline Phosphatase (39-117) U/L Total Protein (6.5-8.0) g/dL Albumin (3.5-5.0) g/dL Lipase (8-78) U/L Urine Color YELLOW Urine Appearance CLEAR Urine pH 6.5 (5.0-8.0) Ur Specific [place] 1.025 (1.005-1.025) Urine Protein NEG (NEG-TRACE) MG/DL Urine Glucose (UA) NEG (NEG) MG/DL Urine Ketones NEG (NEG) MG/DL Urine Blood NEG (NEG) Urine Nitrite NEG (NEG) Ur Leukocyte Esterase NEG (NEG) Urine Test NEGATIVE (NEGATIVE) Urine Opiates Screen Not Detected (Not Detect) Ur Barbiturates Screen Not Detected (Not Detect) Ur Phencyclidine Scrn POSITIVE H (Not Detect) Ur Amphetamines Screen Not Detected (Not Detect) U Benzodiazepines Scrn Not Detected (Not Detect) Urine Cocaine Screen Not Detected (Not Detect) U Marijuana (THC) Screen POSITIVE H (Not Detect) Ethyl Alcohol mg/dL COVID-19 (RADHA) (Negative) COVID-19 Clin Com 06/16/20 06/16/20 06/16/20 Range/Units 22:08 22:08 22:08 WBC 6.7 (4.8-10.8) X10*3/uL RBC 4.10 L (4.20-5.50) X10*6/uL Hgb 13.1 (12.0-16.0) g/dl Hct 38.5 (37-47) % MCV 93.9 (80-98) fL MCH 32.0 (27.0-33.0) pg MCHC 34.0 (31.0-35.0) g/dl RDW 12.4 (11.0-16.0) % Plt Count 215 (160-400) X10*3/uL MPV 11.1 (9.4-12.3) fL Immature Gran % (Auto) 0.1 (0.0-0.4) % Neut % (Auto) 41.3 L (45-73) % Lymph % (Auto) 49.6 H (20-40) % [place] % (Auto) 6.0 (2-11) % Eos % (Auto) 2.1 (0-4) % Baso % (Auto) 0.9 (0-2) % Lymph # (Auto) 3.3 (1.2-4.9) X10*3/uL [place] # (Auto) 0.4 (0.1-1.2) X10*3/uL Eos # (Auto) 0.1 (0.0-0.4) X10*3/uL Baso # (Auto) 0.1 (0.0-0.2) X10*3/uL Abs Immat Gran (auto) 0.01 (0.00-0.03) X10*3/uL Absolute Neuts (auto) 2.8 (2.0-8.3) X10*3/uL Absolute Nucleated RBC 0.000 (0.0-0.012) X10*3/uL Nucleated RBC % (auto) 0.0 (0.0-0.2) /100WBC PT (10.8-13.0) SEC INR (0.9-1.1) APTT (24.1-38.0) SEC Sodium 139 (135-145) mmol/L Potassium 3.6 (3.3-5.1) mmol/L Chloride 106 (96-108) mmol/L Carbon Dioxide 25 (22-29) mmol/L Anion Gap 12 (12-20) BUN 8 L (9-16) mg/dL Creatinine 0.68 (0.5-1.4) mg/dL Estim Creat Clear Calc 103.9 Estimated GFR > 60 Random Glucose 100 (60-115) mg/dL Calcium 8.9 (8.4-10.2) mg/dL Total Bilirubin 0.7 (0.0-1.0) mg/dL Direct Bilirubin 0.3 (0.0-0.5) mg/dL AST 12 D (5-31) U/L ALT 12 (0-31) U/L Alkaline Phosphatase 46 (39-117) U/L Total Protein 6.1 L (6.5-8.0) g/dL Albumin 4.1 (3.5-5.0) g/dL Lipase 23 (8-78) U/L Urine Color Urine Appearance Urine pH (5.0-8.0) Ur Specific [place] (1.005-1.025) Urine Protein (NEG-TRACE) MG/DL Urine Glucose (UA) (NEG) MG/DL Urine Ketones (NEG) MG/DL Urine Blood (NEG) Urine Nitrite (NEG) Ur Leukocyte Esterase (NEG) Urine Test (NEGATIVE) Urine Opiates Screen (Not Detect) Ur Barbiturates Screen (Not Detect) Ur Phencyclidine Scrn (Not Detect) Ur Amphetamines Screen (Not Detect) U Benzodiazepines Scrn (Not Detect) Urine Cocaine Screen (Not Detect) U Marijuana (THC) Screen (Not Detect) Ethyl Alcohol < 10 mg/dL COVID-19 (RADHA) (Negative) COVID-19 Clin Com 06/16/20 06/16/20 Range/Units 22:08 22:08 WBC (4.8-10.8) X10*3/uL RBC (4.20-5.50) X10*6/uL Hgb (12.0-16.0) g/dl Hct (37-47) % MCV (80-98) fL MCH (27.0-33.0) pg MCHC (31.0-35.0) g/dl RDW (11.0-16.0) % Plt Count (160-400) X10*3/uL MPV (9.4-12.3) fL Immature Gran % (Auto) (0.0-0.4) % Neut % (Auto) (45-73) % Lymph % (Auto) (20-40) % [place] % (Auto) (2-11) % Eos % (Auto) (0-4) % Baso % (Auto) (0-2) % Lymph # (Auto) (1.2-4.9) X10*3/uL [place] # (Auto) (0.1-1.2) X10*3/uL Eos # (Auto) (0.0-0.4) X10*3/uL Baso # (Auto) (0.0-0.2) X10*3/uL Abs Immat Gran (auto) (0.00-0.03) X10*3/uL Absolute Neuts (auto) (2.0-8.3) X10*3/uL Absolute Nucleated RBC (0.0-0.012) X10*3/uL Nucleated RBC % (auto) (0.0-0.2) /100WBC PT 13.0 (10.8-13.0) SEC INR 1.1 (0.9-1.1) APTT 29.2 (24.1-38.0) SEC Sodium (135-145) mmol/L Potassium (3.3-5.1) mmol/L Chloride (96-108) mmol/L Carbon Dioxide (22-29) mmol/L Anion Gap (12-20) BUN (9-16) mg/dL Creatinine (0.5-1.4) mg/dL Estim Creat Clear Calc Estimated GFR Random Glucose (60-115) mg/dL Calcium (8.4-10.2) mg/dL Total Bilirubin (0.0-1.0) mg/dL Direct Bilirubin (0.0-0.5) mg/dL AST (5-31) U/L ALT (0-31) U/L Alkaline Phosphatase (39-117) U/L Total Protein (6.5-8.0) g/dL Albumin (3.5-5.0) g/dL Lipase (8-78) U/L Urine Color Urine Appearance Urine pH (5.0-8.0) Ur Specific [place] (1.005-1.025) Urine Protein (NEG-TRACE) MG/DL Urine Glucose (UA) (NEG) MG/DL Urine Ketones (NEG) MG/DL Urine Blood (NEG) Urine Nitrite (NEG) Ur Leukocyte Esterase (NEG) Urine Test (NEGATIVE) Urine Opiates Screen (Not Detect) Ur Barbiturates Screen (Not Detect) Ur Phencyclidine Scrn (Not Detect) Ur Amphetamines Screen (Not Detect) U Benzodiazepines Scrn (Not Detect) Urine Cocaine Screen (Not Detect) U Marijuana (THC) Screen (Not Detect) Ethyl Alcohol mg/dL COVID-19 (RADHA) Negative (Negative) COVID-19 Clin Com See Note Discharge Plan Discharge Clinical Impression: Depression Prescriptions: No Action fluoxetine 10 mg capsule 10 mg PO DAILY RF: 0 medroxyprogesterone [Depo-Provera] 150 mg/mL suspension 150 mg IM Q12W Qty: 1 RF: 5
--- NOTE | 2020-06-17 01:48 | PC.NURSE ---
Fax to N, belongings secured in the pod in locker #12. Pt requesting something to sleep, provider aware.
[2020-06-17] MEDS: LORazepam 1 MG TABLET PO (02:20)
[2020-06-17 02:42] VITALS: BP 105/55; PULSE 62; RESP 14; TEMP 36.7; O2SAT 97
[2020-06-17 05:39] VITALS: RESP 16
--- NOTE | 2020-06-17 08:39 | PC.NURSE ---
Pt denies SI at this time, states i would never do anything do anything to end my life Pt does admit to chronic PCP use but hasnt used in 4 days. Pt reports taking Fluoxetine on an empty stomach a couple of days ago and now feeling like that is contributing to her sx of stomach upset. Pt states she hasnt been compliant with Fluoxetine and reports depression has improved. Awaiting [facility] arrival for eval, agreeable Pt observer at bedside
[2020-06-17 08:58] VITALS: BP 92/48; PULSE 64; RESP 16; O2SAT 97
--- NOTE | 2020-06-17 12:14 | PC.NURSE ---
Spoke to Cyndi from [facility] who took intake over phone and will send clinician out to see pt
[2020-06-17 14:50] VITALS: BP 93/55; PULSE 73; RESP 17; TEMP 36.6; O2SAT 97
[2020-06-17 16:08] VITALS: BP 91/58; PULSE 72; RESP 18; TEMP 36.7; O2SAT 98
--- NOTE | 2020-06-17 17:29 | PC.NURSE ---
Pt remains calm/cooperative with this rn. Spoke to CARE team who states they spoke with N who will have a clinician out to eval on this shift. Pt aware and remains calm and cooperative with plan. Dinner ordered. Pt continues to deny SI to this RN but does report some recent depression and again relays Fluoxetine was making sx worse.
[2020-06-17 18:13] VITALS: BP 92/48; PULSE 68; RESP 18; TEMP 36.8; O2SAT 97
--- NOTE | 2020-06-17 18:56 | PC.NURSE ---
KENNEYN speaking with pt at this time
--- NOTE | 2020-06-17 20:05 | PC.NURSE ---
pt feels ready for discharge, pt denies s1 or h1. skin pink warm and dry. pt is looking for a ride home and [facility] says they are giving her a taxi voucher.
== END 2020-06-17 20:07 | disposition home or self-care (01) ==
PROVIDERS: Physician Assistant; Emergency Provider Internal Medicine
DX: F32.9 Major depressive disorder, single episode, unspecified (principal); R10.9 Unspecified abdominal pain; Z20.822 Contact with and (suspected) exposure to COVID-19; R19.7 Diarrhea, unspecified; F17.210 Nicotine dependence, cigarettes, uncomplicated; F12.90 Cannabis use, unspecified, uncomplicated
CPT/HCPCS: 36415; 80053; 80076; 80307; 80320; 81003; 81025; 82248; 83690; 85025; 85610; 85730; 87635; 99285

== ENCOUNTER → 2020-08-10 13:05 | Outpatient (BNVA) | payer OTHER, SELFPAY | PROVIDERS: PCP Physician Assistant; Visit Provider Advanced Practice Midwife | DX: Z30.42 Encounter for surveillance of injectable contraceptive (principal) | CPT/HCPCS: 96372; 99211 ==

== ENCOUNTER 2020-10-02 15:25 | Emergency (ER) | payer OTHER, SELFPAY | END 2020-10-02 16:22 | disposition left against medical advice (07) | PROVIDERS: Emergency Provider Emergency Medicine; PCP Physician Assistant | DX: J02.9 Acute pharyngitis, unspecified (principal) | CPT/HCPCS: 99281; 99291 ==

== ENCOUNTER 2020-10-10 17:20 | Emergency (ER) | payer OTHER, SELFPAY ==
--- NOTE | ~2020-10-10 | XR_ITS ---
EXAMINATION: XR CHEST CLINICAL INFORMATION: Cough. Green phlegm. COMPARISON: Chest x-ray July 27, 2019 TECHNIQUE: Frontal view of the chest was obtained. FINDINGS: No significant abnormality is noted involving the heart, lungs, mediastinum, bony thorax or soft tissues. XR/XR chest 1V IMPRESSION: Unremarkable examination.
[2020-10-10 17:36] VITALS: BP 115/56; PULSE 94; RESP 18; TEMP 37.3; O2SAT 97; BMI 23.6
--- NOTE | 2020-10-10 17:36 | ED.URI ---
HPI - URI/Sore Throat General Chief Complaint: Upper Respiratory Symptoms Stated Complaint: cough for a week Time Seen by Provider: 10/10/20 17:29 Related Data Home Medications Medication Instructions Recorded Confirmed fluoxetine 10 mg capsule 10 mg PO DAILY 04/21/20 06/16/20 Previous Rx's Medication Instructions Recorded medroxyprogesterone 150 mg/mL 150 mg IM Q12W #1 ml 02/23/20 intramuscular suspension (Depo-Provera) benzonatate 100 mg capsule 100 mg PO TID PRN #14 cap 10/10/20 (Tesmynor Callaway) fluticasone propionate 50 2 spray INTRANASAL DAILY #16 g 10/10/20 mcg/actuation nasal spray,suspension (Flonase Allergy Relief) Allergies Allergy/AdvReac Type Severity Reaction Status Date / Time citalopram [From Celexa] Allergy Intermediate panic Verified 10/10/20 17:35 attacks sertraline AdvReac Intermediate diarrhea Verified 10/10/20 17:35 PMFSH Past Medical History Medical History Bipolar disorder, unspecified control counseling Surgical History Status post debridement Family History Family History Father Medical history unknown Mother Medical history unknown Daughter In good health Sister In good health Brother No problems noted. Son No problems noted. Social History Social History Household Members: None Housing: Apartment Do you presently have visiting nurse or other home services: No Alcohol intake: unknown Cigarette Packs Per Day: 10 Cigarettes Per Day: 0.5 Second Hand Smoke Exposure: No Substance Use Type: Hallucinogens Advance Directives: No Advance Directives Information Provided: Yes Patient : No service: No Current occupational status: unemployed Sexual orientation: Straight/Heterosexual Physical Exam Vital Signs: Vital Signs: Last Vital Signs Temp 99.0 F 10/10/20 18:50 Pulse 64 10/10/20 18:50 Resp 16 10/10/20 18:50 BP 111/69 10/10/20 18:50 Pulse Ox 99 10/10/20 18:50 Body Mass Index 23.6 Course Course Course Narrative: Patient presents to the ED for coughing green phelghm, and runny nose and tiredness since October 02. Vital are stable. Patient will have chest xray and covid swab ordered. This is a Rapid Medical Screening. MDM - URI/Sore Throat Lab Data Labs: Lab Results 10/10/20 Range/Units 18:06 Coronavirus (PCR) NEGATIVE (Negative) Influenza Type A (PCR) NEGATIVE (Negative) Influenza Type B (PCR) NEGATIVE (Negative) RSV RNA Qual (PCR) NEGATIVE (Negative) Discharge Plan Discharge Clinical Impression: Acute viral syndrome Patient Disposition: Home, Self-Care Additional Instructions: You tested negative for COVID-19, the flu, and RSV Your x-ray was unremarkable Starrsalon Perlbenito for cough, take as needed Flonase is a nasal decongestion spray, use as needed Follow-up with her doctor If her symptoms persist or worsen, become unbearable, constant worsening chest pain or shortness of breath please return to the ED Prescriptions: New benzonatate [Tessalon Perles] 100 mg capsule 100 mg PO TID PRN (Reason: cough) Qty: 14 RF: 0 fluticasone propionate [Flonase Allergy Relief] 50 mcg/actuation spray,suspension 2 spray intranasal DAILY Qty: 16 RF: 0 No Action fluoxetine 10 mg capsule 10 mg PO DAILY RF: 0 medroxyprogesterone [Depo-Provera] 150 mg/mL suspension 150 mg IM Q12W Qty: 1 RF: 5 Referrals: Elliot Hsu PA-C [Primary Care Provider] - 2 days Interventions: ED Discharge Assessment Last Done: 10/10/20 19:22 Discharge Date/Time: 10/10/20 19:22
--- NOTE | 2020-10-10 18:22 | PC.NURSE ---
PER ALLYN TIDWELL-GIVE TYLENOL AT D/C
--- NOTE | 2020-10-10 18:23 | ED.URI ---
HPI - URI/Sore Throat General Chief Complaint: Upper Respiratory Symptoms <YAW Jesus Last Filed: 10/10/20 18:54> Stated Complaint: cough for a week <YAW Jesus Last Filed: 10/10/20 18:54> Time Seen by Provider: 10/10/20 17:29 <YAW Jesus Last Filed: 10/10/20 18:54> Source: patient <YAW Jesus Last Filed: 10/10/20 18:54> Mode of arrival: ambulatory <YAW Jesus Last Filed: 10/10/20 18:54> Limitations: no limitations <YAW Jesus Last Filed: 10/10/20 18:54> History of Present Illness HPI Narrative: 50-year-old female presents for 1 week of cough with sputum. Patient has not had fevers, she has a sore throat and runny nose. No headache, mild nausea, no vomiting. Patient is vaccinated for COVID. Patient is a smoker. The patient is not seasonal allergies or asthma. She has had no sick contacts. <YAW Jesus Last Filed: 10/10/20 18:54> MD elicited complaint: cough <YAW Jesus Last Filed: 10/10/20 18:54> Onset (ago): week(s) (1) <YAW Jesus Last Filed: 10/10/20 18:54> Consistency: progressively worsening <YAW Jesus Last Filed: 10/10/20 18:54> Severity: moderate <YAW Jesus Last Filed: 10/10/20 18:54> Description of mucous: green <YAW Jesus Last Filed: 10/10/20 18:54> Able to tolerate fluids by mouth: Yes <YAW Jesus Last Filed: 10/10/20 18:54> Exacerbating factors: nothing <YAW Jesus Last Filed: 10/10/20 18:54> Relieving factors: nothing <YAW Jesus Last Filed: 10/10/20 18:54> Associated symptoms: nausea <YAW Jesus Last Filed: 10/10/20 18:54> Treatments prior to arrival: none <YAW Jesus - Last Filed: 10/10/20 18:54> Related Data Home Medications: Home Medications Medication Instructions Recorded Confirmed fluoxetine 10 mg capsule 10 mg PO DAILY 04/21/20 06/16/20 Previous Rx's Medication Instructions Recorded medroxyprogesterone 150 mg/mL 150 mg IM Q12W #1 ml 02/23/20 intramuscular suspension (Depo-Provera) benzonatate 100 mg capsule 100 mg PO TID PRN #14 cap 10/10/20 (Tesmynor Callaway) fluticasone propionate 50 2 spray INTRANASAL DAILY #16 g 10/10/20 mcg/actuation nasal spray,suspension (Flonase Allergy Relief) <YAW Jesus Last Filed: 10/10/20 18:54> Allergies/Adverse Reactions: Allergies Allergy/AdvReac Type Severity Reaction Status Date / Time citalopram [From Celexa] Allergy Intermediate panic Verified 10/10/20 17:35 attacks sertraline AdvReac Intermediate diarrhea Verified 10/10/20 17:35 <YAW Jesus Last Filed: 10/10/20 18:54> Review of Systems Review of Systems: Constitutional : No Weight loss, No Fever, No Chills, No Night Sweats,No Fatigue, No Malaise ENT/Mouth : Sore throat runny nose. No Hearing loss, No Ear Pain, No Nasal Congestion, NoSinus Pain, No Hoarseness, NoSwallowing Difficulty Eyes: No Eye Pain, No Swelling, No Redness, No Foreign Body, NoDischarge, No Vision Changes Cardiovascular : No Chest Pain, No SOB, No Dyspnea on Exertion, NoOrthopnea, No Edema, No Palpitations Respiratory : Cough with green sputum, mild wheezing, No Smoke Exposure, No Dyspnea Gastrointestinal : mild Nausea, No Vomiting, No Diarrhea, NoConstipation, No abdominal Pain, No Hematochezia, No Melena Genitourinary : no irregular bleeding, No Dysuria, No UrinaryFrequency, No Hematuria, No Urinary Incontinence, No Urgency, No FlankPain, No Urinary Flow Changes, No Hesitancy Musculoskeletal : No joint pain, No Myalgias, No Joint Swelling Skin : No Skin Lesions, No rash Neuro : No Weakness, No Numbness, No Paresthesias, No Loss ofConsciousness, No Dizziness, No Headache Psych : No Anxiety/Panic, No Depression, No SI/HI/AH/VH, No Social Issues, Heme/Lymph: No Bruising, No Bleeding,No Lymphadenopathy Endocrine : No Polyuria, No Polydipsia, No Temperature Intolerance <YAW Jesus - Last Filed: 10/10/20 18:54> Yes all other systems are reviewed and are negative <YAW Jesus - Last Filed: 10/10/20 18:54> PMF Past Medical History Medical History: Medical History Bipolar disorder, unspecified control counseling <YAW Jesus - Last Filed: 10/10/20 18:54> Surgical History: Surgical History Status post debridement <YAW Jesus - Last Filed: 10/10/20 18:54> Family History Family History: Family History Father Medical history unknown Mother Medical history unknown Daughter In good health Sister In good health Brother No problems noted. Son No problems noted. <YAW Jesus - Last Filed: 10/10/20 18:54> Social History Social History: Social History Household Members: None Housing: Apartment Do you presently have visiting nurse or other home services: No Alcohol intake: unknown Cigarette Packs Per Day: 10 Cigarettes Per Day: 0.5 Second Hand Smoke Exposure: No Substance Use Type: Hallucinogens Advance Directives: No Advance Directives Information Provided: Yes Patient : No service: No Current occupational status: unemployed Sexual orientation: Straight/Heterosexual <YAW Jesus - Last Filed: 10/10/20 18:54> Physical Exam Vital Signs: Vital Signs: Last Vital Signs Temp 99.0 F 10/10/20 18:50 Pulse 64 10/10/20 18:50 Resp 16 10/10/20 18:50 BP 111/69 10/10/20 18:50 Pulse Ox 99 08/09/21 18:50 Body Mass Index 23.6 <YAW Jesus - Last Filed: 10/10/20 18:54> Vital Signs: Last Vital Signs Temp 99.0 F 10/10/20 18:50 Pulse 64 10/10/20 18:50 Resp 16 10/10/20 18:50 BP 111/69 10/10/20 18:50 Pulse Ox 99 10/10/20 18:50 Body Mass Index 23.6 <YAW Valentine - Last Filed: 10/10/20 19:20> Appearance: Alert. Oriented X3. No acute distress. Head: Normal external exam. Normocephalic. Atraumatic. ?No [place] signs noted. No raccoon eyes noted Eyes: PERRLA. EOMI. Conjunctiva and sclera normal. Eyelids normal. ENT: Diffusely erythematous posterior oropharynx. Mildly enlarged bilateral tonsils with minimal white exudate. EAC normal. TM's Normal. Uvula midline. Moist mucous membranes. ??No trismus noted. ?No drooling noted. ?No muffled voice noted. Neck: Mild cervical lymphadenopathy. Normal inspection. Neck supple. FROM.. Thyroid Normal. No meningeal signs. No neck mass noted. CVS: Normal heart rate and rhythm. Heart sound normal. Pulses normal throughout. ?No murmurs/rales/gallops. Respiratory: No respiratory distress. Painless inspiration. Breath sounds normal. No wheezes/rales/rhonchi noted.??No accessory muscle usage noted or decreased air movement noted. Skin: Skin warm and dry. ?Normal skin color. ?Normal skin turgor. No rashes/lesions/lacerations noted. Extremities: No lower extremity edema. ??Extremities exhibit normal range of motion. ?Extremities nontender. Neuro: Oriented X 3. ?No motor deficit. ?No sensory deficit. ?Reflexes normal. ?Normal steady gait. ?No focal neuro deficits noted. Vascular: + radial pulses/+ 2 distal pedal pulses/+2 dorsalis pedis b/l. ?Normal cap refill. ?No cyanosis noted to upper extremity nails and lower extremity toes nails. <YAW Jesus - Last Filed: 10/10/20 18:54> Course Course Course Narrative: 30-year-old female presents for 1 week of cough, sore throat, runny nose. No fevers She has been vaccinated for COVID. On exam, patient satting 97% on room air, normal heart rate, normal blood pressure. Patient's temperature is 99.2? F. Lungs clear to auscultation bilaterally, no wheezes, rales, or rhonchi. Posterior oropharynx mildly injected diffusely, bilateral tonsils mildly hypertrophic. CXR shows no infiltrate, consolidation or effusion present. I do not think it is appropriate to swab for strep as patient has no fevers, and sore throat is not her chief complaint. Signed pt out to Brandi Junior, [facility], pending Covid results. <YAW Jesus - Last Filed: 10/10/20 18:54> 30-year-old female presents for 1 week of cough, sore throat, runny nose. No fevers She has been vaccinated for COVID. On exam, patient satting 97% on room air, normal heart rate, normal blood pressure. Patient's temperature is 99.2? F. Lungs clear to auscultation bilaterally, no wheezes, rales, or rhonchi. Posterior oropharynx mildly injected diffusely, bilateral tonsils mildly hypertrophic. CXR shows no infiltrate, consolidation or effusion present. I do not think it is appropriate to swab for strep as patient has no fevers, and sore throat is not her chief complaint. Signed pt out to Brandi Junior, [facility], pending Covid results. -1919--COVID-19/influenza/RSV negative. <YAW Valentine - Last Filed: 10/10/20 19:20> MDM - URI/Sore Throat Lab Data Labs: Lab Results 10/10/20 Range/Units 18:06 Coronavirus (PCR) NEGATIVE (Negative) Influenza Type A (PCR) NEGATIVE (Negative) Influenza Type B (PCR) NEGATIVE (Negative) RSV RNA Qual (PCR) NEGATIVE (Negative) <YAW Jesus - Last Filed: 10/10/20 18:54> Lab Results 10/10/20 Range/Units 18:06 Coronavirus (PCR) NEGATIVE (Negative) Influenza Type A (PCR) NEGATIVE (Negative) Influenza Type B (PCR) NEGATIVE (Negative) RSV RNA Qual (PCR) NEGATIVE (Negative) <YAW Valentine - Last Filed: 10/10/20 19:20> Discharge Plan Discharge Clinical Impression: Acute viral syndrome <YAW Jesus Last Filed: 10/10/20 18:54> Patient Disposition: Home, Self-Care <YAW Jesus Last Filed: 10/10/20 18:54> Additional Instructions: You tested negative for COVID-19, the flu, and RSV Your x-ray was unremarkable Tessalon Perlbenito for cough, take as needed Flonase is a nasal decongestion spray, use as needed Follow-up with her doctor If her symptoms persist or worsen, become unbearable, constant worsening chest pain or shortness of breath please return to the ED <YAW Jesus Last Filed: 10/10/20 18:54> Prescriptions: New benzonatate [Tessalon Perles] 100 mg capsule 100 mg PO TID PRN (Reason: cough) Qty: 14 RF: 0 fluticasone propionate [Flonase Allergy Relief] 50 mcg/actuation spray,suspension 2 spray intranasal DAILY Qty: 16 RF: 0 No Action fluoxetine 10 mg capsule 10 mg PO DAILY RF: 0 medroxyprogesterone [Depo-Provera] 150 mg/mL suspension 150 mg IM Q12W Qty: 1 RF: 5 <YAW Jesus Last Filed: 10/10/20 18:54> Referrals: Elliot Hsu PA-C [Primary Care Provider] - 2 days <YAW Jesus Last Filed: 10/10/20 18:54>
[2020-10-10 18:50] VITALS: BP 111/69; PULSE 64; RESP 16; TEMP 37.2; O2SAT 99
[2020-10-10 19:15] LABS: Influenza A PCR NEGATIVE (Negative); Influenza B PCR NEGATIVE (Negative); Resp Syncy Virus RNA Qual PCR NEGATIVE (Negative); SARS COV2 PCR INHOUSE NEGATIVE (Negative)
== END 2020-10-10 19:22 | disposition home or self-care (01) ==
PROVIDERS: Physician Assistant; Emergency Provider Emergency Medicine Emergency Medical Services; PCP Physician Assistant
DX: R05 Cough (principal); B34.9 Viral infection, unspecified; F17.210 Nicotine dependence, cigarettes, uncomplicated; Z20.822 Contact with and (suspected) exposure to COVID-19; Z71.6 Tobacco abuse counseling; Z79.899 Other long term (current) drug therapy
CPT/HCPCS: 0241U; 36415; 71045; 99283

== ENCOUNTER → 2020-11-09 15:07 | Outpatient (BNVA) | payer OTHER, SELFPAY | PROVIDERS: Visit Provider Advanced Practice Midwife | DX: Z30.42 Encounter for surveillance of injectable contraceptive (principal) | CPT/HCPCS: 96372; 99211 ==

== ENCOUNTER → 2021-01-30 14:58 | Outpatient (BNVA) | payer OTHER, SELFPAY | PROVIDERS: PCP Physician Assistant; Visit Provider Advanced Practice Midwife | DX: Z30.42 Encounter for surveillance of injectable contraceptive (principal); Z88.8 Allergy status to other drugs, medicaments and biological substances | CPT/HCPCS: 96372; 99211 ==

== ENCOUNTER → 2021-04-20 15:38 | Outpatient (BNVA) | payer OTHER, SELFPAY | PROVIDERS: Visit Provider Advanced Practice Midwife | DX: Z30.42 Encounter for surveillance of injectable contraceptive (principal) | CPT/HCPCS: Q3014 ==

== ENCOUNTER 2021-05-01 12:20 | Emergency (ER) | payer OTHER, SELFPAY ==
[2021-05-01 12:56] VITALS: BP 113/58; PULSE 83; RESP 18; TEMP 37.3; O2SAT 99; BMI 23.3
== END 2021-05-01 15:33 | disposition left against medical advice (07) ==
PROVIDERS: Emergency Provider Emergency Medicine; PCP Physician Assistant
DX: L02.412 Cutaneous abscess of left axilla (principal)
CPT/HCPCS: 99281; 99282

== ENCOUNTER 2021-05-02 00:28 | Emergency (ER) | payer OTHER, SELFPAY ==
[2021-05-02 00:35] VITALS: BP 113/63; PULSE 67; RESP 18; TEMP 37.4; O2SAT 98; BMI 25.0
--- NOTE | 2021-05-02 01:22 | ED.SKABFB ---
HPI - Skin/Abscess/Foreign Bdy General Chief complaint: Skin/Abscess/Foreign Body Stated complaint: ?Abscess Time Seen by Provider: 05/02/21 01:41 Source: patient Mode of arrival: ambulatory Limitations: no limitations History of Present Illness HPI narrative: 30-year-old female presents with lab arm abscess for approximately 1 week. complaint: abscess/boil Onset (ago): week(s) (1) Tetanus up to date: no Location: LUE (Axilla) Severity: moderate Severity scale (1-10): 7 Quality: aching Pain Consistency: constant Exacerbating factors: palpation and movement Context: none Associated symptoms: denies other symptoms Treatments prior to arrival: none Related Data Previous Rx's Medication Instructions Recorded medroxyprogesterone 150 mg/mL 150 mg IM Q12W #1 ml 04/20/21 intramuscular suspension (Depo-Provera) Allergies Allergy/AdvReac Type Severity Reaction Status Date / Time citalopram [From Celexa] Allergy Intermediate panic Verified 05/02/21 00:35 attacks sertraline AdvReac Intermediate diarrhea Verified 05/02/21 00:35 Review of Systems Review of Systems: Constitutional: No Fever, No Chills ENT/Mouth: No Ear Pain, No Hoarseness, No sore throat Eyes: No Eye Pain, No Swelling, No Redness, No Foreign Body Cardiovascular: No Chest Pain, No SOB Respiratory: No Cough, No Dyspnea Gastrointestinal: No Nausea, No Vomiting, No Diarrhea, No abdominal Pain Genitourinary: No Dysuria, No Hematuria Musculoskeletal: positive left axilla pain, No Myalgias, No Joint Swelling Skin: Positive left axilla abscess, No Skin lacerations, No rash Neuro: No Weakness, No Numbness, No Paresthesias, No Loss of Consciousness, No Dizziness, No Headache Psych: No Anxiety/Panic, No Depression Heme/Lymph: no easy bruising, no Lymphadenopathy Endocrine: No Polyuria, No Polydipsia Yes all other systems are reviewed and are negative COUNTS INCLUDE 234 BEDS AT THE [facility] Past Medical History Attestation statement: The following information was validated with the patient. Source: old records reviewed Medical History Bipolar disorder, unspecified control counseling Surgical History Status post debridement Family History Family History Father Medical history unknown Mother Medical history unknown Daughter In good health Sister In good health Brother No problems noted. Son No problems noted. Social History Social History Household Members: None Housing: Apartment Do you presently have visiting nurse or other home services: No Alcohol intake: never Patient Tobacco Use Status: Current everyday Tobacco user Cigarette Packs Per Day: 0.5 Cigarettes Per Day: 4 Second Hand Smoke Exposure: No Substance Use Type: Hallucinogens Advance Directives: No Patient : No service: No Current occupational status: unemployed Sexual orientation: Straight/Heterosexual Physical Exam Vital Signs: Vital Signs: Last Vital Signs Temp 99.4 F 05/02/21 00:35 Pulse 67 05/02/21 00:35 Resp 18 05/02/21 00:35 BP 113/63 05/02/21 00:35 Pulse Ox 98 05/02/21 00:35 BMI result Body Mass Index 25.0 Appearance: Alert. Oriented X3. Mild distress. Eyes: Pupils equal, round and reactive to light. ENT: Pharynx normal. Neck: Normal inspection. Neck supple. No cervical lymphadenopathy. No axillary adenopathy. CVS: Normal heart rate and rhythm. Pulses normal. Respiratory: No respiratory distress. Breath sounds normal. Abdomen: Soft and nontender. Skin: 2 cm in diameter abscess to left axilla, with points of fluctuance. Skin warm and dry. Normal skin color. Normal skin turgor. Extremities: No lower extremity edema. Moves all extremities against resistance. Gait well-balanced well coordinated. Neuro: No motor deficit. No sensory deficit. Cranial nerves 2-12 intact. Course Course Course Narrative: 30-year-old female presents with abscess to the left axilla. No history of IVDA. No axillary adenopathy, plan of care is to I&D abscess. Prepped and draped in sterile fashion. Patient tolerated procedure well. Patient verbalized understanding of and agrees to plan of care discharge home. Verbalized understanding of signs and symptoms indicating need for emergent intervention MDM - Skin/Abscess/Foreign Bdy Differential Diagnosis Differential diagnosis: Likely abscess of skin or subcutaneous tissue Medical Records Attestation: I reviewed the patient's medical records. Procedures Abscess I/D Site: upper extremity (Axilla) Side (if applicable): left Local Anesthetic: lidocaine 2% Amount of anesthesia used (mL): 4 Technique: incised with blade Amount of fluid expressed (mL): 5 Sent for culture/gram staining?: No Irrigation: Yes Packing used?: none Discharge Plan Discharge Clinical Impression: Sebaceous cyst of axilla, Encounter for incision and drainage procedure Patient Disposition: Home, Self-Care Instructions: Cyst (ED), Abscess Incision and Drainage (DC) Additional Instructions: You were evaluated for an abscess to the left armpit. This is a sebaceous cyst. Please monitor for signs and symptoms indicating infection. If you have any increased swelling, fevers or chills please return for evaluation. Use Tylenol and or Motrin as needed for pain management. Thank you for choosing this emergency department for evaluation. Please follow-up with primary care physician as needed. Return to the emergency department for any new, concerning, or worsening symptoms. Prescriptions: No Action medroxyprogesterone [Depo-Provera] 150 mg/mL suspension 150 mg IM Q12W Qty: 1 0RF
[2021-05-02] MEDS: Lidocaine HCl 2 % MPF 5 ML VIAL SUBCUT (02:17)
[2021-05-02] MEDS: oxyCODONE HCl Immed Release 5 MG TABLET PO (02:17)
== END 2021-05-02 02:42 | disposition home or self-care (01) ==
PROVIDERS: Emergency Provider Emergency Medicine; PCP Physician Assistant
DX: L02.412 Cutaneous abscess of left axilla (principal); F17.210 Nicotine dependence, cigarettes, uncomplicated; Z71.6 Tobacco abuse counseling; Z79.899 Other long term (current) drug therapy
CPT/HCPCS: 10060; 99284

== ENCOUNTER 2021-05-11 13:31 | Outpatient (REF) | payer OTHER, SELFPAY ==
[2021-05-12 01:56] LABS: CT PCR NOT DETECTED (Not Detect.); NG PCR NOT DETECTED (Not Detect.)
[2021-05-12 12:16] LABS: BV Int Neg Control Negative (Negative); BV Int Pos Control Positive (Positive)
[2021-05-14 05:26] LABS: HPV mRNA E6/E7 rflx Not Detected (Not Detected)
== END 2021-05-11 13:32 | disposition home or self-care (01) ==
LOC: HO.LAB 13:31
PROVIDERS: Visit Provider Advanced Practice Midwife
DX: Z01.419 Encounter for gynecological examination (general) (routine) without abnormal findings (principal); F17.210 Nicotine dependence, cigarettes, uncomplicated; F43.21 Adjustment disorder with depressed mood; Z32.02 Encounter for pregnancy test, result negative; Z20.2 Contact with and (suspected) exposure to infections with a predominantly sexual mode of transmission
CPT/HCPCS: 81025; 87480; 87491; 87510; 87591; 87624; 87660; 88142

== ENCOUNTER → 2021-05-19 14:44 | Outpatient (BNVA) | payer OTHER, SELFPAY | PROVIDERS: PCP Physician Assistant; Visit Provider Obstetrics & Gynecology | DX: Z13.89 Encounter for screening for other disorder (principal) ==

== ENCOUNTER 2021-08-28 03:29 | Emergency (ER) | payer OTHER, SELFPAY ==
--- NOTE | ~2021-08-28 | CT_ITS ---
EXAMINATION: CT HEAD WITHOUT CONTRAST CLINICAL INFORMATION: Status post fall COMPARISON: None TECHNIQUE: Contiguous axial imaging was performed from the skull base to vertex without intravenous administration of contrast. This CT examination was performed using dose optimization techniques as appropriate, variously including the following: *Automated exposure control *Adjustment of mA and/or kV according to patient size (this includes techniques or standardized protocols for targeted exams where dose is matched to indication/reason for exam; i.e. extremities or head) *Use of iterative reconstruction technique DLP: 633 mGy-cm FINDINGS: No intracranial hemorrhage, tumors or acute infarcts are noted. The ventricles and sulci are normal in size and configuration. No focal parenchymal lesions the brain noted. The orbits and globes are normal in appearance. No significant opacification of the visualized paranasal sinuses, mastoid air cells or middle ear cavities. CT/CT head/brain wo con IMPRESSION: No acute intracranial abnormalities.
[2021-08-28 03:39] VITALS: BP 91/61; PULSE 67; RESP 18; TEMP 37.1; O2SAT 93; BMI 25.7
--- NOTE | 2021-08-28 03:47 | ED.FALL ---
HPI - Fall General Chief Complaint: Fall Stated Complaint: slipped on wet floor, hit head on wall Time Seen by Provider: 08/28/21 03:47 Source: patient Mode of arrival: ambulatory Limitations: no limitations History of Present Illness HPI Narrative: Patient apparently slipped on the cement floor about 12 hours ago hitting her back of the head very hard since then patient complaining of his headache with nausea no loss of consciousness no seizures normal balance also complaining of pain in the ears Related Data Home Medications Medication Instructions Recorded Confirmed No Known Home Meds 05/17/21 05/17/21 Allergies Allergy/AdvReac Type Severity Reaction Status Date / Time citalopram [From Celexa] Allergy Intermediate panic Verified 08/28/21 03:41 attacks sertraline AdvReac Intermediate diarrhea Verified 08/28/21 03:41 Review of Systems Review of Systems: Yes all other systems are reviewed and are negative [facility] Past Medical History Medical History Bipolar disorder, unspecified control counseling Surgical History Status post debridement Family History Family History Father Medical history unknown Mother Medical history unknown Daughter In good health Sister In good health Brother No problems noted. Son No problems noted. Social History Social History Household Members: None Housing: Apartment Do you presently have visiting nurse or other home services: No Alcohol intake: never Patient Tobacco Use Status: Current everyday Tobacco user Cigarette Packs Per Day: 0.5 Cigarettes Per Day: 4 Second Hand Smoke Exposure: No Substance Use Type: Hallucinogens Advance Directives: Yes Advance Directives Information Provided: Yes Advance Directives on File: No service: No Current occupational status: unemployed Sexual orientation: Straight/Heterosexual Physical Exam Vital Signs: Vital Signs: Last Vital Signs Temp 98.7 F 08/28/21 03:39 Pulse 67 08/28/21 03:39 Resp 18 08/28/21 03:39 BP 91/61 08/28/21 03:39 Pulse Ox 93 08/28/21 03:39 O2 Del Method 06/27/22 03:39 BMI result Body Mass Index 25.7 Appearance: Alert. Oriented X3. No acute distress. Eyes: PERRLA, No Nystagmus HEENT: Pharynx normal. Oral Mucosa moist tenderness at the occipital area with soft tissue swelling, tympanic membrane intact b/l Neck: Normal inspection. Neck supple. CVS: Normal heart rate and rhythm. Pulses normal. Respiratory: No respiratory distress. Equal air entry bilateral, no wheezing/rales/rhonchi Abdomen: Soft and nontender. Bowel sounds are present, no mass palpable, no CVA tenderness Skin: Skin warm and dry. Normal skin color. Normal skin turgor. Extremities: No lower extremity edema. No calf tenderness Neuro: Oriented X 3. No motor deficit. No sensory deficit.No cerebellar signs , cranial nerves II-XII intact MDM - Fall MDM Narrative Medical decision making narrative: Patient is post mechanical fall head CT negative for any acute will discharge patient home Discharge Plan Discharge Clinical Impression: Minor closed head injury Patient Disposition: Home, Self-Care Instructions: Head Injury (ED) Additional Instructions: Take Tylenol/ibuprofen for pain report to the ER if seizures/vomiting/worsening of headache Prescriptions: No Action No Known Home Meds
[2021-08-28] MEDS: traMADoL HCL 50 MG TABLET PO (05:09)
== END 2021-08-28 05:11 | disposition home or self-care (01) ==
PROVIDERS: Emergency Provider Internal Medicine; PCP Physician Assistant
DX: S09.90XA Unspecified injury of head, initial encounter (principal); R11.0 Nausea; G44.309 Post-traumatic headache, unspecified, not intractable; F17.210 Nicotine dependence, cigarettes, uncomplicated; W18.2XXA Fall in (into) shower or empty bathtub, initial encounter; Y93.E1 Activity, personal bathing and showering; Y92.002 Bathroom of unspecified non-institutional (private) residence as the place of occurrence of the external cause; Y99.9 Unspecified external cause status; Z71.6 Tobacco abuse counseling
CPT/HCPCS: 70450; 99283

== ENCOUNTER → 2022-06-21 11:15 | Outpatient (BNVA) | payer OTHER, SELFPAY | PROVIDERS: PCP Physician Assistant; Visit Provider Surgery | DX: R22.1 Localized swelling, mass and lump, neck (principal) | CPT/HCPCS: 99202 ==

== ENCOUNTER 2022-07-27 07:22 | Day surgery (SDC) | payer OTHER, SELFPAY ==
[2022-07-24 15:12] VITALS: BMI 33.1
[2022-07-27 07:36] VITALS: BP 112/63; PULSE 84; RESP 18; TEMP 36.1; O2SAT 98
--- NOTE | 2022-07-27 08:15 | HO.ANESPROP2 ---
HPI - Anesthesia Eval Consult details Narrative: excision facial mass PMFSH Active Problems Active Problems: All Active Problems (Updated 05/14/22 @ 14:59 by SHERYL Goyal) control counseling (Acute) Depot contraception (Acute) Annual physical exam (Acute) Screening for diabetes mellitus (DM) (Acute) Screening for hypercholesterolemia (Acute) Screening for hypothyroidism (Acute) Mass in neck (Acute) Screen for STD (sexually transmitted disease) (Acute) Tinea pedis (Acute) Enlarged lymph node in neck (Acute) MDD (major depressive disorder), recurrent episode, moderate (Acute) Low blood pressure reading (Acute) Surveillance for Depo-Provera contraception (Acute) Well woman exam with routine gynecological exam (Acute) Cervical cancer screening (Acute) Grief reaction (Acute) Annual physical exam (Acute) Smoking (Acute) Breast pain, left (Acute) Left breast mass (Acute) Sterilization consult (Acute) Toenail fungus (Acute) Atypical nevi (Acute) Past Medical History Medical History (Updated 05/14/22 @ 14:59 by SHERYL Goyal) Atypical nevi Bipolar disorder, unspecified control counseling Family History Family History Father Medical history unknown Mother Medical history unknown Daughter In good health Sister In good health Brother No problems noted. Son No problems noted. Family history of problems with anesthesia: No Surgical History Surgical History (Updated 07/27/22 @ 07:38 by Shantelle Valdes RN) Hx of tubal ligation Status post debridement History of Problems with Anesthesia: No Social History Social History Household Members: None Housing: Apartment Do you presently have visiting nurse or other home services: No Alcohol intake: never Patient Tobacco Use Status: Former Tobacco user Tobacco use type: Cigarette Cigarette Packs Per Day: 0.5 Cigarettes Per Day: 4 e-Cigarette/Vaping Use: Never Used Second Hand Smoke Exposure: No Substance Use Type: Hallucinogens Are you DNR?: No Advance Directives: No Advance Directives Information Provided: Yes Nutrition Risks: No Nutritional Risk Patient : No service: No Current occupational status: unemployed Sexual orientation: Straight/Heterosexual Cognitive needs: No Hearing needs: No Vision needs: No Meds Allergies Allergy/AdvReac Type Severity Reaction Status Date / Time citalopram [From Celexa] Allergy Intermediate panic Verified 06/21/22 11:21 attacks sertraline AdvReac Intermediate diarrhea Verified 06/21/22 11:21 Exam Exam Date and Time: July 27, 2022 0815 Height,Weight and Vital Signs: Height 5 ft 5 in Weight 90.265 kg Last Vital Signs Temp 97 F 07/27/22 07:36 Pulse 84 07/27/22 07:36 Resp 18 07/27/22 07:36 BP 112/63 07/27/22 07:36 Pulse Ox 98 07/27/22 07:36 O2 Del Method Room Air 07/27/22 07:36 Airway Mallampati Class: II TM Dist: >3cm Neck ROM: Full Heart: rrr Lungs: cta Assessment and Plan Assessment Anesthesia Assessment: Anesthesia Plan Discussed Final Anesthetic Review Family History of Problems with Anesthesia: No History of Problems with Anesthesia: No NPO: Yes ASA Class: II Final Preanesthetic Review: No Changes in Pt Med Stat, Meds/Allgs Chart Reviewed, Consent Obtained/Reviewed and Anes Risks/Benef Reviewed Patient Risk: Low Procedure Risk: Low Anesthetic Plan Anesthetic Plan: GA and MAC: Disposition: Standard PACU
--- NOTE | 2022-07-27 08:38 | MHC.SHP ---
Pre-Procedural Eval Section A Date of Service: 07/27/22 The patient is an INPATIENT: No Changes since office visit: No Cold of Flu in the past 2 weeks, No New Medical Problems, No Changes in Medication and No Patient answered all questions The History & Physical has been completed within 30 days and I have reviewed it.: Yes Section B Chief Complaint: Localized swelling, mass and lump, neck Allergies: Allergies Allergy/AdvReac Type Severity Reaction Status Date / Time citalopram [From Celexa] Allergy Intermediate panic Verified 06/21/22 11:21 attacks sertraline AdvReac Intermediate diarrhea Verified 06/21/22 11:21 Plan I have reviewed the history and physical and performed a pertinent physical examination on my patient. No changes have occurred unless specified. Time Spent With Patient Time: Total time managing care of this patient today ____ minutes.
[2022-07-27 09:16] VITALS: BP 137/63; PULSE 72; RESP 16; TEMP 36.9; O2SAT 99
--- NOTE | 2022-07-27 09:16 | W.PM.OPN ---
Operative Note Operative Note Date of Service: 07/27/22 Narrative: Preoperative diagnosis: [] Left cervical/submandibular mass Postop diagnosis: [] same Procedure [] excision left cervical /submandibular mass Surgeon: [] Aiden Morphology Teacher: [] Type of Anesthesia: [] general Indication for surgery: [] approximately 4 x 3 cm left deep cervical/ submandibular mass Findings: [] patient brought to the operating room, placed on operative table in supine position, after adequate level of MAC anesthesia was induced, the left neck /face area were prepped and draped in usual sterile fashion. The incision site was infiltrated with 1% lidocaine /0.5% Marcaine and small oblique incision was made over the mass in question , and carried down through skin, subcutaneous tissue, and cervical fascia. Using blunt dissection, the mass in question was identified and was circumferentially dissected out using blunt dissection and sent to pathology. The mass was lobulated and quite friable. The wound Was irrigated, secured hemostasis, and closed using interrupted 3-0 Vicryl sutures to reapproximate the cervical fascia. Skin was closed using interrupted inverted dermal 3-0 Vicryl sutures followed by Steri-Strips and sterile dressing. Sponge, needle, and instrument counts reported correct. Patient tolerated procedure well and emerged anesthesia stable condition. EBL minimal A completion the procedure, patient had a symmetrical smile in recovery room.
[2022-07-27 09:31] VITALS: BP 142/74; PULSE 62; RESP 16; O2SAT 99
[2022-07-27 09:46] VITALS: BP 129/70; PULSE 67; RESP 16; TEMP 36.8; O2SAT 99
== END 2022-07-27 10:47 | disposition home or self-care (01) ==
PROVIDERS: PCP Physician Assistant; Visit Provider Surgery
PROC: (CPT 21555; principal; 2022-07-27 08:30)
DX: D37.030 Neoplasm of uncertain behavior of the parotid salivary glands (principal); F31.9 Bipolar disorder, unspecified; D22.9 Melanocytic nevi, unspecified; Z88.8 Allergy status to other drugs, medicaments and biological substances; Z87.891 Personal history of nicotine dependence
CPT/HCPCS: 21555; 88304; 88307; J0690

== ENCOUNTER → 2022-08-06 10:12 | Outpatient (BNVA) | payer OTHER, SELFPAY | PROVIDERS: PCP Physician Assistant; Visit Provider Surgery | DX: Z48.3 Aftercare following surgery for neoplasm (principal); D11.9 Benign neoplasm of major salivary gland, unspecified | CPT/HCPCS: 99212 ==

== ENCOUNTER 2022-08-24 16:57 | Outpatient (REF) | payer OTHER, SELFPAY ==
--- NOTE | ~2022-08-24 | XR_ITS ---
EXAMINATION: XR CHEST CLINICAL INFORMATION: Pleurodynia COMPARISON: Previous chest x-ray most recent October 2020 TECHNIQUE: 2 views of the chest were obtained. FINDINGS: No significant abnormality is noted involving the heart, lungs, mediastinum, bony thorax or soft tissues. XR/XR chest 2V IMPRESSION: Unremarkable examination.
== END 2022-08-24 16:58 | disposition home or self-care (01) ==
LOC: HO.XRAY 16:57
PROVIDERS: PCP Physician Assistant; Visit Provider Physician Assistant
DX: R07.81 Pleurodynia (principal)
CPT/HCPCS: 71046

== ENCOUNTER 2023-04-18 08:51 | Outpatient (AMB) | payer OTHER, SELFPAY ==
[2023-04-18 08:57] VITALS: BP 98/60; PULSE 64; O2SAT 98; BMI 26.5
--- NOTE | 2023-04-18 08:57 | MHC.PC.OV ---
Vital Signs 04/18/23 08:57 Height 5 ft 5 in Weight 159 lb BMI 26.5 BP 98/60 Blood Pressure Location Rt brachial Position Sitting Pulse 64 Pulse Source Pulse Oximeter Pulse Oximetry (%) 98 Oxygen Delivery Method Room Air Intake Visit Reasons: Annual physical Intake Note: Patient is here today for a physical. Stablehand Required: No Allergies citalopram [From Celexa] Allergy (Intermediate, Verified 04/18/23 09:34) panic attacks sertraline Adverse Reaction (Intermediate, Verified 04/18/23 09:34) diarrhea Medication List - Last Reconciled 04/18/23 by Elliot Hsu PA-C No Known Home Meds Tobacco use date assessed: 04/18/23 Dental Screening Dental Screen Date: 04/18/23 Did you have a dental visit in the last 12 months?: Yes Did you have a dental problem in the last 6 months where you did not have access to dental care?: No Was dental information given to patient?: Patient has dentist HPI Annual physical HPI Details Deanna is a 32 year female here today for annual physical Patient has a past medical history significant major depressive disorder substance abuse history, smoker Concern--> reports over the last couple of months having a sensation left lower extremity moving vein , denies any swelling or erythema in her left lower extremity. Of note did give to twins in April of 2022 via and did receive epidural .. Smoker: Has drastically reduced her cigarette smoking down to 1-2 cigarettes per day Offered her medication for smoking cessation though she declines. .. 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 Vaccines: Up-to-date with pneumonia vaccine, up-to-date with COVID vaccine, up-to-date with tetanus Water Tender : Followed by [facility] order administrator, recently had gotten Pap which was normal. [facility] Medical History Atypical nevi Bipolar disorder, unspecified control counseling Surgical History Hx of tubal ligation Status post debridement Family History Father Medical history unknown Mother Medical history unknown Daughter In good health Sister In good health Brother No problems noted. Son No problems noted. Social History Household Members: None Housing: Apartment Do you presently have visiting nurse or other home services: No Alcohol intake: never Comment: PATIENT ASLEEP Patient Tobacco Use Status: Current everyday Tobacco user Tobacco use type: Cigarette Cigarette Packs Per Day: 0.5 Cigarettes Per Day: 4 e-Cigarette/Vaping Use: Never Used Second Hand Smoke Exposure: No Substance Use Type: Hallucinogens service: No Current occupational status: unemployed Sexual orientation: Straight/Heterosexual Cognitive needs: No Hearing needs: No Vision needs: No Female Reproductive History Menstrual Age of Menarche: 12 Questionnaire PHQ-9 Over the last 2 weeks, how often have you been bothered by any of the following problems? 1. Little interest or pleasure in doing things: not at all 2. Feeling down, depressed, or hopeless: not at all 3. Trouble falling or staying asleep, or sleeping too much: not at all 4. Feeling tired or having little energy: not at all 5. Poor appetite or overeating: not at all 6. Feeling bad about yourself - or that you are a failure or have let yourself or your family down: not at all 7. Trouble concentrating on things, such as reading the newspaper or watching television: not at all 8. Moving or speaking so slowly that other people could have noticed. Or the opposite - being so fidgety or restless that you have been moving around a lot more than usual: not at all 9. Thoughts that you would be better off or of hurting yourself in some way: not at all Total score: 0 Depression Screening Interpretation: Negative Depression Screening Done: Yes 74762 - PHQ-9 Billing: Yes Source: Developed by Drs. Ranjeet Fallon, Selma Bolivar, Shaka Spicer and colleagues, with an educational arcenio from [employer]. Thrive Questionnaire Date Thrive assessed: 04/18/23 I am a: Patient What is your living situation today?: I have a steady place to live Within the past 12 months, did the food you bought not last and you didn't have the money to get more?: Never true Within the past 12 months, did you worry whether your food would run out before you got money to buy more?: Never true Do you have trouble paying for medicines?: No Do you have trouble getting transportation to medical appointments?: No Do you have trouble paying your heating and electricity bill?: No Do you have trouble taking care of your child, family member or friend?: No Do you have trouble with day-to-day activities such as bathing, preparing meals, shopping, managing finances, etc.?: No Are you currently unemployed and looking for a job?: No Are you interested in more education?: No Please select the resources that you would like help with: None THRIVE Score: 0 AUDIT C Alcohol Use Questionnaire (AUDIT-C) 1. How often do you have a drink containing alcohol?: Never 2. How many drinks containing alcohol do you have on a typical day when you are drinking?: 1 or 2 (0) 3. How often do you have six or more drinks on one occasion?: Never Total Score: 0 NORIS-7 AMB Questionnaire NORIS-7 Date NORIS - 7 assessed: 04/18/23 Feeling nervous, anxious, or on edge: 0 = Not at all Not being able to stop or control worryin = Not at all Worrying too much about different things: 0 = Not at all Trouble relaxin = Not at all Being so restless that it is hard to sit still: 0 = Not at all Becoming easily annoyed or irritable: 0 = Not at all Feeling afraid as if something awful might happen: 0 = Not at all Total NORIS-7 score (0-4 normal; 5-9 mild; 10-14 moderate; 15-21 severe): 0 Source: Developed by Drs. Ranjeet Fallon, Selma Bolivar, Shaka Spicer and colleagues, with an educational arcenio from [employer]. NORIS-7 Assessment Billing NORIS-7 Assessment Tool: NORIS-7 Assessment 25749 Review of Systems Const Denies body aches, Denies chills, Denies excessive sweating, Denies fatigue, Denies fever(s) and Denies headache(s) Eyes Denies blurry vision ENT Denies dysphagia, Denies vertigo, Denies dizziness, Denies headache(s), Denies hearing loss and Denies tinnitus Card Denies chest pain, Denies chest pain with activity, Denies syncope, Denies irregular heart rhythm and Denies dyspnea Resp Denies chest congestion, Denies cough, Denies hemoptysis, Denies dyspnea and Denies wheezing GI Denies abdominal pain, Denies melena, Denies hematochezia, Denies coffee ground emesis, Denies dysphagia, Denies diarrhea, Denies nausea and Denies vomiting Denies urinary frequency, Denies dysuria, Denies urinary hesitancy and Denies urinary urgency Musc Denies arthralgias, Denies limited range of motion, Denies muscle cramps and Denies muscle weakness Skin/Breast Denies rash and Denies skin ulcer Neuro Denies Abnormal speech present, Denies confusion, Denies vertigo, Denies dizziness, Denies syncope, Denies headache(s), Denies memory loss and Denies seizure-like activity Psych Denies anxiety, Denies confusion, Denies depression, Denies memory loss, Denies panic attacks and Denies paranoia Endo Denies excessive sweating, Denies fatigue, Denies flushing, Denies polydipsia and Denies polyuria Aller/Immun Denies wheezing Physical exam (Primary Care) Vital Signs: Last Vital Signs Pulse 64 04/18/23 08:57 BP 98/60 04/18/23 08:57 Pulse Ox 98 04/18/23 08:57 Oxygen Delivery Method Room Air 04/18/23 08:57 BMI result Body Mass Index 26.5 Tobacco/Smoking Status: Tobacco use Status Tobacco use date assessed 04/18/23 04/18/23 08:59 Patient Tobacco Use Status Current everyday Tobacco 04/18/23 09:20 Tobacco use type Cigarette 04/18/23 08:59 e-Cigarette/Vaping Use Never Used 04/18/23 08:59 Are you ready to quit: Yes Tobacco cessation counseling provided: Yes Items discussed: Nicotine replacement Relapse Prevention: discussed the importance of a supportive environment, discussed negative mood or depression after quitting, weight gain after smoking is common and discussed dietary, exercise and/or lifestyle changes Number of minutes spent counselin CPT code: 51059 - 4-10 Minutes PHQ-9: PHQ-9 Score PHQ-9: Total score 0 04/18/23 09:56 Depression Screening Interpretation: Negative Thrive Assessment: Date of Thrive Assessment Date Thrive assessed 04/18/23 04/18/23 08:59 Const General: cooperative, comfortable, no acute distress, alert and awake; No confusion Orientation/consciousness: oriented to person, oriented to place, patient oriented x3 and No confusion HENMT Head: Yes normocephalic Ears: external ears normal and TM's normal bilaterally Face and sinus: No sinus tenderness Mouth: Normal oral and palatal mucosa present and tongue normal Teeth and gingiva: dentition normal and gingiva normal Throat: Yes posterior oropharynx normal, Yes tonsils normal and Yes uvula midline Eyes Conjunctivae: conjunctivae normal Sclerae: sclerae normal Pupils: Equal, round and reactive pupils present EOM: EOMs intact bilaterally Direct Ophthalmoscopy: No no photophobia Neck Neck: Yes no lymphadenopathy, No tender and Yes no JVD Thyroid: Thyroid normal Carotids: no bruits Chest Chest palpation & inspection: no tenderness Resp Effort & Inspection: normal respiratory effort, no audible wheezes, not labored and no stridor Auscultation: no crackles, no rales, no rhonchi and no wheezes Cardio Jugular venous distension: no JVD Rate: regular rate, not bradycardic and not tachycardic Rhythm: regular rhythm Bruits: no carotid bruits Peripheral pulses: Peripheral pulses 2+ throughout GI Inspection: Yes normal to inspection, No abdominal wall ecchymosis and No visible herniation Palpation (GI): Soft to palpation, nontender, no guarding, not rigid and No hepatosplenomegaly present Auscultation: normoactive bowel sounds General: Yes no CVA tenderness Back/Spine/Pelvis Back: no CVA tenderness and No back tenderness Cervical Spine: cervical ROM normal Thoracic/Lumbar Spine: thoracic and lumbar spine normal to inspection, straight leg raise negative bilaterally, No thoraco-lumbar ROM limited and No lumbar spinal tenderness Skin Lesions: no lesions Rashes: no rashes Wounds: no wounds Neuro General: oriented to person, oriented to place, patient oriented x3, CN's II-XI intact bilaterally and No confusion Cranial nerves: Yes Equal, round and reactive pupils present and Yes Normal accommodation reflex present Cognition (Neuro): normal cognition Speech: No Abnormal speech present Gait exam (Neuro): Normal gait present Motor exam (neuro): 5/5 motor strength present throughout Extrem Right upper extremity: full ROM; no cyanosis Left upper extremity: full ROM; no cyanosis Right lower extremity: no edema Left lower extremity: no edema Psych Appearance: grossly normal Mental Status: mental status grossly normal Affect: normal affect Attitude: cooperative Thought process: Normal thought process present Assessment and Plan Assessment & Plan (1) Annual physical exam: Code(s): Z00.00 - Encounter for general adult medical examination without abnormal findings (2) Lumbar radicular syndrome: Code(s): M54.16 - Radiculopathy, lumbar region Plan: Patient has had some lumbar discomfort ever since having her twins. She did have a an epidural. Offered order for physical therapy as I feel she will benefit though she is considering at this time. (3) Leg paresthesia: Code(s): R20.2 - Paresthesia of skin Plan: Reporting a sensation of a moving vein in her left lower extremity. Wondering if this is a paresthesia related to neuropathy. Will send for EMG testing, lumbar spine x-ray (4) Smoking: Code(s): F17.200 - Nicotine dependence, unspecified, uncomplicated Plan: Unfortunately continues to smoke 1 or 2 cigarettes per day. She has reduced her smoking from a pack a day. She is declining starting any nicotine replacement and will like to quit cigarette smoking on her own (5) Lower extremity edema: Code(s): R60.0 - Localized edema Plan: Will send for venous ultrasound of the left lower extremity Orders: Orders XR lumbar spine 2-3V Today M54.16 - Radiculopathy, lumbar region US venous duplex LE LT Today R60.0 - Localized edema Comprehensive [place]. Panel Fast Today Z13.1 - Encounter for screening for diabetes mellitus NE electromyogram (EMG) Today R20.2 - Paresthesia of skin Coding Level of Care Code Est Pt Prev Care 18-39y(50671) Diagnoses Annual physical exam Z00.00 Lumbar radicular syndrome M54.16 Leg paresthesia R20.2 Smoking F17.200 Lower extremity edema R60.0 Additional Codes NORIS-7 Assessment Billing - NORIS-7 Assessment Tool: NORIS-7 Assessment 28535 ([id number]) Vital Signs *Quality* - CPT code: 19146 - 4-10 Minutes ([id number])
== END 2023-04-18 09:54 | disposition home or self-care (01) ==
PROVIDERS: PCP Physician Assistant; Visit Provider Physician Assistant
DX: Z00.00 Encounter for general adult medical examination without abnormal findings (principal); M54.16 Radiculopathy, lumbar region; R20.2 Paresthesia of skin; F17.210 Nicotine dependence, cigarettes, uncomplicated; R60.0 Localized edema
CPT/HCPCS: 99395; 99406

== ENCOUNTER 2024-03-23 12:06 | Outpatient (REF) | payer OTHER, SELFPAY ==
--- NOTE | ~2024-03-23 | XR_ITS ---
EXAMINATION: XR CHEST CLINICAL INFORMATION: R07.9 - Chest pain, unspecified COMPARISON: None available. TECHNIQUE: 2 views of the chest were obtained. FINDINGS: No significant abnormality is noted involving the heart, lungs, mediastinum, bony thorax or soft tissues. XR/XR chest 2V IMPRESSION: Unremarkable chest exam Electronically signed by: Uriel Moya MD 03/23/2024 01:01 PM [facility]
[2024-03-23 12:52] LABS: Hematocrit 37.9 % (37.0-47.0); Hemoglobin 12.1 g/dl (12.0-16.0); Mean Corpuscular HGB Conc 31.9 g/dl (31.0-35.0); Mean Corpuscular Hemoglobin 29.3 pg (27.0-33.0); Mean Corpuscular Volume 91.8 fL (80.0-98.0); Platelet Count 247 X10*3/uL (160-400); Red Blood Count 4.13 X10*6/uL (4.20-5.50); Red Cell Distribution Width 15.8 % (11.0-16.0); White Blood Count 5.2 X10*3/uL (4.8-10.8)
[2024-03-23 12:54] LABS: Appearance Urine Cloudy; Color Urine Yellow; Glucose Urine UA Negative (Negative); Leukocyte Esterase Urine Negative (Negative); Nitrite Urine Positive (Negative); PH 7.5 (5.0-9.0); UMIC TRIGGER UACC YES; Urine Blood Negative (Negative); Urine Ketones Negative (Negative); Urine Protein Negative (Neg-Trace)
[2024-03-23 12:56] LABS: Bacteria Urine 4+ (None Seen); Hyaline Casts Urine 0-2 /LPF (0-2); RBC Urine 0-2 /HPF (0-2); UACC Culture Trigger YES; WBC Urine 0-5 /HPF (0-5)
[2024-03-23 13:14] LABS: Alanine Aminotransferase 51 U/L (0-31); Albumin Level 4.3 g/dL (3.5-5.0); Alkaline Phosphatase 52 U/L (39-117); Anion Gap 10 (12-20); Aspartate Amino Transferase 36 U/L (5-31); Bilirubin Total 0.3 mg/dL (0.0-1.0); Blood Urea Nitrogen 10 mg/dL (9-16); Carbon Dioxide 30 mmol/L (22-29); Chloride 104 mmol/L (96-108); Estimated Glomerular Filt Rate > 60; Glucose Fasting 104 mg/dL (60-99); Sodium 140 mmol/L (135-145); Total Protein 7.1 g/dL (6.5-8.0)
== END 2024-03-23 12:07 | disposition home or self-care (01) ==
LOC: HO.XRAY 12:06
PROVIDERS: PCP Physician Assistant; Visit Provider Physician Assistant
DX: R07.9 Chest pain, unspecified (principal); Z13.1 Encounter for screening for diabetes mellitus; R30.0 Dysuria
CPT/HCPCS: 36415; 71046; 80053; 81001; 85027; 87086; 87088; 87186

== ENCOUNTER → 2024-03-23 12:14 | Outpatient (BNV) | payer OTHER, SELFPAY | PROVIDERS: PCP Physician Assistant; Visit Provider Radiology Diagnostic Radiology | DX: R07.9 Chest pain, unspecified (principal) | CPT/HCPCS: 71046 ==

== ENCOUNTER 2024-03-25 08:07 | Outpatient (AMB) | payer OTHER, SELFPAY ==
[2024-03-25 08:08] VITALS: BP 103/53; PULSE 58; BMI 25.6
--- NOTE | 2024-03-25 08:08 | A.OFFVIS_ITS ---
Vital Signs 03/25/24 08:08 Height 5 ft 5 in Weight 154 lb BMI 25.6 BP 103/53 L Blood Pressure Location Rt brachial Position Sitting Pulse 58 Intake Visit Reasons: Cyst axilla Intake Note: Patient referred for cyst on Lt axilla. Drained at ER 2yrs ago. Patient c/o: inflamed, pain that spreads to Lt breast. Air Lift Operator Required: No Allergies citalopram [From Celexa] Allergy (Intermediate, Verified 03/25/24 08:14) panic attacks sertraline Adverse Reaction (Intermediate, Verified 03/25/24 08:14) diarrhea Medication List - Last Reconciled 03/25/24 by Ace Wolfe MD nicotine 1 patch transdermal DAILY 14 days nicotine 1 patch transdermal DAILY 14 days nitrofurantoin monohyd/m-cryst 100 mg (Macrobid) 100 mg PO Q12H 5 days HPI Comments Details: Patient presents with a symptomatic enlarging left axillary cyst. She would like to have removed. She has had these in the past elsewhere in the abdomen removed. Patient was known to me for similar cyst excision. [facility] Medical History Atypical nevi control counseling Bipolar disorder, unspecified Surgical History Hx of tubal ligation Status post debridement Family History Father Medical history unknown Mother Medical history unknown Daughter In good health Sister In good health Brother No problems noted. Son No problems noted. Social History Household Members: None Housing: Apartment Do you presently have visiting nurse or other home services: No Alcohol intake: never Comment: PATIENT ASLEEP Patient Tobacco Use Status: Current everyday Tobacco user Tobacco use type: Cigarette Cigarette Packs Per Day: 0.5 Cigarettes Per Day: 4 e-Cigarette/Vaping Use: Never Used Second Hand Smoke Exposure: No Substance Use Type: Hallucinogens service: No Current occupational status: unemployed Sexual orientation: Straight/Heterosexual Cognitive needs: No Hearing needs: No Vision needs: No Female Reproductive History Menstrual Age of Menarche: 12 Physical Exam Vital Signs: Last Vital Signs Pulse 58 03/25/24 08:08 BP 103/53 L 03/25/24 08:08 BMI result Body Mass Index 25.6 Extrem Other: Patient was a roughly 2 x 1 cm sebaceous cyst of the left axilla just outside of the hairline superiorly. Office Procedures Excision Details: Risks, benefits, alternatives of excision of left axillary sebaceous cyst were reviewed with the patient and included but not limited to bleeding, infection, recurrence, numbness, pain, scarring the patient wished to proceed. Consent signed. All questions answered. After appropriate positioning, patient underwent 1% lidocaine and Betadine prep and a transverse by elliptical incision encompassing the cyst in question and was uneventfully excised. Specimen sent to pathology. Wound was irrigated, secured hemostasis, and closed using running subcuticular 3-0 Vicryl suture followed by Steri-Strips and sterile dressings. Patient tolerated procedure well. 25868-unvgf/arms/legs 2.1-3cm Procedure code (CPT) selection complete Office Meds lidocaine 1 %-epinephrine 1:100,000 injection solution Performing Provider: Ace Wolfe MD Performing Location: [facility] [place] [facility] Administered by: Ace Wolfe MD on 03/25/24 09:04 Dose Route Admin Location Dispensed Lot Number Expiration Date [facility] Environmental Consultant 15 mL Infiltration 15 mL Assessment & Plan Assessment & Plan (1) Sebaceous cyst of left axilla: Code(s): L72.3 - Sebaceous cyst Category: Surgical Plan See above Orders: Orders Surgical Today L72.3 - Sebaceous cyst AMB Excision Today L72.3 - Sebaceous cyst Medications: New lidocaine-epinephrine 1 %-1:100,000 15 mL Infiltration ONCE 30 mL 0RF L72.3 - Sebaceous cyst Coding Level of Care Code Est Pt Level 5 (33457) Diagnoses Sebaceous cyst of left axilla L72.3 CPT Codes Trunk/Arms/Legs - CPT: 40023-zdcvn/arms/legs 2.1-3cm ([id number])
== END 2024-03-25 08:45 | disposition home or self-care (01) ==
PROVIDERS: PCP Physician Assistant; Visit Provider Surgery
DX: L72.3 Sebaceous cyst (principal)
CPT/HCPCS: 11403; 99213

== ENCOUNTER 2024-03-25 08:07 | Outpatient (REF) | payer OTHER, SELFPAY ==
--- OUTSIDE RECORDS SUMMARY | 2024-03-25 09:21 | XMS_ITS | Clinical Summary ---
Author Organization [facility] it[facility] Address [address] [place] [address] Care Team Providers Care Reaming Machine Operator Name Role Phone Unavailable Primary Care Provider Unavailabl e Social History Tobacco Use Types Packs/Day Years Used Date Smoking Tobacco: Never Assessed Sex and Gender Information Value Date Recorded Sex Assigned at Not on file Gender Identity Not on file Sexual Orientation Not on file Plan of Treatment Health Maintenance Due Date Last Done Comments DTaP,Tdap,and Td Vaccines (1 - Tdap) 2008 Hepatitis B Vaccines (1 of 3 - 19+ 3-dose series) 2008 Cervical Cancer Screening: P ap Smear 2010 COVID-19 Vaccine (2023-2 5 season) 2023 Influenza Vaccine (#1) 2023 HIB Vaccines Aged Out No longer eligi ble based on patient's age to complete this topic HPV Vaccines Aged Out No longer eligi ble based on patient's age to complete this topic Hepatitis A Vaccines Aged Out No long er eligible based on patient's age to complete this topic IPV Vaccines Aged Out No longer eligi ble based on patient's age to complete this topic MMR Vaccines Aged Out No longer eligi ble based on patient's age to complete this topic Meningococcal ACWY Vaccine Aged Out N o longer eligible based on patient's age to complete this topic Pneumococcal Vaccine: Pediat rics (0 to 5 Years) and At-Risk Patients (6 to 64 Years) Aged Out No longer eligible b ased on patient's age to complete this topic RSV Immunization Patients Un gracie 20 months Aged Out No longer eligible b ased on patient's age to complete this topic Varicella Vaccines Aged Out No longer eligible based on patient's age to complete this topic
--- OUTSIDE RECORDS SUMMARY | 2024-03-25 09:22 | XMS_ITS ---
Author Organization [facility] Address [address] [place] [address] Care Team Providers Care Agile Project Manager Name Role Phone Elliot Hsu Primary Care Provider Unavailab Lilly Hernandes Unavailable [phone] Medications Medication SIG (Take, Route, Frequency, Duration) Notes Start Date End Date Status Ciclopirox Olamine 0.77 % 1 application to affected area Externally to feet Twice a day for 30 days Active Ciclopirox 0.77 % 1 application to affected area Externally Twice a day for 365 days Active Vitamin-Folic Acid 1 MG 1 tablet with a meal Orally Once a day for 30 day(s) Not-Taking Encounters Encounter Location Date Provider Diagnosis [address] [address] 03/25/2024 Lilly Rm Plan Of Treatment Next Appt Details Provider Name:Lilly kuhn, 03/25/2024 03:45:00 PM, [address] [place] [address], [phone], Progress Notes * Deanna TRINIDADDOB: 0 (33 yo F)Acc No.[id number]:03/25/2024 Progress Note Patient:?Deanna TRINIDAD Provider:?Lilly Rm DPM :1990???Age:33 Y???Sex:Female D ate:03/25/2024 Address:[address] [place] [address], [address], [id number] Pcp:Elliot Hsu Subjective: * Chief Complaints: * ??? * Medical History:? * Medications:?Taking Ciclopir ox Olamine 0.77 % Cream 1 application to affected area Externally to feet Twice a day , Taking Ciclopirox 0.77 % Gel 1 application to affected area Externally Twice a day , Not-Taking/PRN Vitamin-Folic Acid 1 MG Tablet 1 tablet with a meal Orally Once a day Objective: * Vitals:? Assessment: Plan: * Treatment: * Images: * The named appointment provid er may or may not be the originator of this progress note, and it is not deemed complete until electronically signed by the appointment provider. Sign off status: Pending * Provider:?Lilly Rm DPM Date:?0 03/25/2024 Generated for Orquidea castillo/Deyvi/Kimitting on:?03/25/2024 09:21 AM EST
--- OUTSIDE RECORDS SUMMARY | 2024-03-25 09:22 | XMS_ITS ---
Author Organization [facility] Address [address] [place] [address] Care Team Providers Care Obstetrician And Gynaecologist Name Role Phone Elliot Hsu Primary Care Provider Unavailab Lilly Hernandes [phone] Encounters Encounter Location Date Provider Diagnosis [address] [address] 02/03/2024 Lilly Rm Plan Of Treatment Next Appt Details Provider Name:Lilly kuhn, 03/25/2024 03:45:00 PM, [address] [place], [address], Progress Notes * Deanna TRINIDADDOB: 0 (33 yo F)Acc No.[id number]:02/03/2024 Progress Note Patient:?Deanna TRINIDAD Provider:?Lilly Rm DPM :1990???Age:33 Y???Sex:Female D ate:02/03/2024 Address:[address] [place] [address], [address], [id number] Pcp:Elliot Hsu Subjective: * Chief Complaints: * ??? * Medical History:? Objective: * Vitals:? Assessment: Plan: * Treatment: * Images: * The named appointment provid er may or may not be the originator of this progress note, and it is not deemed complete until electronically signed by the appointment provider. Sign off status: Pending * Provider:?Lilly Rm DPM Date:?1 04/05/2023 Generated for Orquidea castillo/Deyvi/Alethea on:?03/25/2024 09:21 AM EST
--- OUTSIDE RECORDS SUMMARY | 2024-03-25 09:22 | XMS_ITS | Patient Health Record ---
[facility] Address [address] [place] [address] Care Team Providers Care County Judge Name Role Phone Elliot Hsu Primary Care Provider Unavailab Lilly Hernandes Unavailable [phone] Ant Donovan Unavailable [phone] Lovely Sy Unavailable [phone] Allergies Allergen (clinical drug ingredient) Drug/Non Drug Allergy documented on EMR Reaction Allergy Type Onset Date Status citalopram Citalopram panic attacks Drug Allergy A ctive sertraline Sertraline diarrhea Drug Allergy Activ e Reason For Referral No Information Medications Medication SIG (Take, Route, Frequency, Duration) [...] Once a day for 30 day(s) Not-Taking Immunizations Vaccine Route Administration Date Status Comme nts COVID-19 Moderna Vaccine Unknown 07/03/2020 Administere d 06/03/2020 Social History Tobacco Use: Social History Observation Description Date Details (start date - stop date) Former Smoker NA - NA Tobacco Use/Smoking Question Answer Notes Are you a: former smoker Additional Findings: Tobacco Non-User Ex-cigaret te smoker Alcohol Screen Question Answer Notes Did you have a drink containing alcohol in the p ast year? No Points 0 Interpretation Negative Tobacco use other than smoking: Question Answer Notes Are you an other tobacco user? No Problems Problem Type SNOMED Code ICD Code Onset Dates Problem Status W/U Status Risk Notes Problem Tinea unguium (143479189) Tinea unguium (B35.1) Active confirmed Response to treatment,Un changed Vital Signs Blood pressure diastolic 80 mm Hg 11/15/2023 Height 5ft5in in 11/15/2023 Blood pressure systolic 120 mm Hg 11/15/2023 Weight 205 lbs 11/15/2023 BMI 34.11 kg/m2 11/15/2023 Encounters Encounter Location Date Provider Diagnosis [address] [address] 06/11/2023 Ant [facility] Tinea unguium B35.1 ; Pain in right toe(s) M79.674 and Pain in left toe(s) M79.[address] [address] 11/15/2023 Lovely Sy Tinea unguium B35.1 ; Pain in right toe(s) M79.674 ; Pain in left toe(s) M79.675 and Tinea pedis B35.[address] [address] 04/10/2023 Antbernice Donovan [address] [address] 05/01/2023 Ant Donovan [address] [address] 05/06/2023 Ant [place] Tinea unguium B35.1 and Tinea pedis B35.[address] [address] 09/10/2023 [facility] [address] 11/01/2023 Antbernice Donovan [address] [address] 11/12/2023 Antbernice Donovan [address] [address] 12/30/2023 Lovely [place] [address] [address] [place] [address] 01/28/2024 Lilly Rm [facility] [address] [place] [address] 02/03/2024 Lilly Rm Assessments Encounter Date Diagnosis (ICD Code) Assessment Notes Treatment Notes Treatment Clinical Notes Section Notes 05/06/2023 Tinea unguium (ICD-10 - B35.1) Response to treatment,Uncha nged 06/11/2023 Tinea unguium (ICD-10 - B35.1) Response to treatment,Uncha nged 06/11/2023 Pain in right toe(s) (ICD-10 - M79.674) 11/15/2023 Tinea unguium (ICD-10 - B35.1) Response to treatment,Uncha nged 11/15/2023 Pain in right toe(s) (ICD-10 - M79.674) 06/11/2023 Pain in left toe(s) (ICD-10 - M79.675) 05/06/2023 Tinea pedis (ICD-10 - B35.3) 11/15/2023 Pain in left toe(s) (ICD-10 - M79.675) 11/15/2023 Tinea pedis (ICD-10 - B35.3) Plan Of Treatment Next Appt Details Provider Name:Lilly kuhn, 03/25/2024 03:45:00 PM, [address] [place] [address], [phone], Insurance Providers Payer Name Payer Address Payer Phone Subscriber Number Group Number Insured Name Patient Relationship to Insured Coverage Start Date Coverage End Date [facility] [employer] S[employer] Claims [address] [place] [id number] Deanna Upton Self - patient is the insured Medical (General) History Medical History History ICD Code Bipolar disorder Anemia Surgical History Surgery Date(Month/Year) 04/07/2022 Hospitalization History Reason Date(Month/Year)
--- OUTSIDE RECORDS SUMMARY | 2024-03-25 09:22 | XMS_ITS ---
Author Organization [facility] Address [address] [place] [address] Care Team Providers Care Cigarette Maker Name Role Phone Elliot Hsu Primary Care Provider Unavailab Lilly Hernandes [phone] REASON FOR VISIT same day rs 02/03/24 Encounters Encounter Location Date Provider Diagnosis [address] [address] 02/03/2024 Lilly Rm Plan Of Treatment Next Appt Details Provider Name:Lilly kuhn, 03/25/2024 03:45:00 PM, [address] [place] [address], [phone], Progress Notes * Deanna TRINIDADDOB: 0 (33 yo F)Acc No.[id number]:02/03/2024 Patient:?Deanna TRINIDAD :1990???Age:33 Y???Sex:Female Address:[address] [place] [address] [address], [place], [address] * true * Date:? Generated for Orquidea castillo/Deyvi/eTransmitting on:?03/25/2024 09:21 AM EST
== END 2024-03-25 08:08 | disposition home or self-care (01) ==
LOC: HO.LNP 08:07
PROVIDERS: PCP Physician Assistant; Visit Provider Surgery
DX: L72.0 Epidermal cyst (principal)
CPT/HCPCS: 11403; 88304; 99212

== ENCOUNTER 2024-04-01 07:59 | Outpatient (AMB) | payer OTHER, SELFPAY ==
--- OUTSIDE RECORDS SUMMARY | 2024-04-01 08:01 | XMS_ITS ---
Author Organization [facility] Address [address] [place] [address] Care Team Providers Care Melting Furnace Skimmer Name Role Phone ShadiElliot Primary Care Provider Unavailab Lilly Hernandes [phone] REASON FOR VISIT same day rs 02/03/24 Encounters Encounter Location Date Provider Diagnosis [facility] [address] [place] [address] 02/03/2024 Lilly Rm Plan Of Treatment No Information Progress Notes * Deanna UPTONDOB: 0 (33 yo F)Acc No.[id number]:02/03/2024 Patient:?Deanna UPTON :1990???Age:33 Y???Sex:Female Address:[address] [place] [address] [address], [place], [address] * true * Date:? Generated for Sayi anna/Deyvi/eTransmitting on:?04/01/2024 08:01 AM EST
--- OUTSIDE RECORDS SUMMARY | 2024-04-01 08:01 | XMS_ITS ---
Author Organization [facility] Address [address] [place] [address] Care Team Providers Care Glass Vial Filler Name Role Phone Elliot Hsu Primary Care Provider Unavailab Lilly Hernandes Unavailable [phone] Encounters Encounter Location Date Provider Diagnosis [address] [address] 02/03/2024 Lilly Rm Plan Of Treatment No Information Progress Notes * Deanna TRINIDADDOB: 0 (33 yo F)Acc No.[id number]:02/03/2024 Progress Note Patient:?Deanna TRINIDAD Provider:?Lilly Rm DPM :1990???Age:33 Y???Sex:Female D ate:02/03/2024 Address:[address] [place], [place] [id number] Pcp:Elliot Hsu Subjective: * Chief Complaints: * ??? * Medical History:? Objective: * Vitals:? Assessment: Plan: * Treatment: * Images: * The named appointment provid er may or may not be the originator of this progress note, and it is not deemed complete until electronically signed by the appointment provider. Sign off status: Pending * Provider:?Lilly Rm DPM Date:?1 04/05/2023 Generated for Orquidea castillo/Deyvi/eTransmitting on:?04/01/2024 08:01 AM EST
--- OUTSIDE RECORDS SUMMARY | 2024-04-01 08:01 | XMS_ITS | Clinical Summary ---
[facility] Address [address] [place] [address] Care Team Providers Care Pilot Plant Operator Helper Name Role Phone Unavailable Primary Care Provider [...]
--- OUTSIDE RECORDS SUMMARY | 2024-04-01 08:01 | XMS_ITS | Patient Health Record ---
[facility] Address [address] [place] [address] Care Team Providers Care Auto Body Customizer Name Role Phone Elliot Hsu Primary Care Provider Unavailab Lilly Hernandes Unavailable [phone] Ant Donovan Unavailable [phone] Lovely Sy Unavailable [phone] Allergies Allergen (clinical drug ingredient) Drug/Non Drug [...] W/U Status Risk Notes Problem Tinea unguium (058690896) Tinea unguium (B35.1) Active confirmed Response to treatment,Un changed Vital Signs Blood pressure diastolic 80 mm Hg 03/25/2024 Height 5ft5in in 03/25/2024 Blood pressure systolic 120 mm Hg 03/25/2024 Weight 205 lbs 03/25/2024 BMI 34.11 kg/m2 03/25/2024 Encounters Encounter Location Date Provider Diagnosis [address] [address] 06/11/2023 Ant Donovan Tinea unguium B35.1 ; Pain in right toe(s) M79.674 and Pain in left toe(s) M79.[address] [address] 11/15/2023 Lovely Sy Tinea unguium B35.1 ; Pain in right toe(s) M79.674 ; Pain in left toe(s) M79.675 and Tinea pedis B35.[address] [address] 03/25/2024 Lilly Rm Pain in right toe(s) M79.674 ; Onychomycosis B35.1 and Pain in left toe(s) M79.[address] [address] 04/10/2023 Ant Donovan [address] [address] 05/01/2023 Ant Donovan [address] [address] 05/06/2023 Antbernice Donovan Tinea unguium B35.1 and Tinea pedis B35.[address] [address] 09/10/2023 Ant [place] [address] [address] 11/01/2023 Ant Donovan [facility] [address] [place] [address] 11/12/2023 Ant Donovan [facility] [address] [address] 12/30/2023 Lovely Sy [facility] [address] [address] 01/28/2024 Lilly Rm [facility] [address] [address] 02/03/2024 Lilly Rm Assessments Encounter Date Diagnosis (ICD Code) Assessment Notes Treatment Notes Treatment Clinical Notes Section Notes 05/06/2023 Tinea unguium (ICD-10 - B35.1) Response to treatment,Uncha nged 06/11/2023 Tinea unguium (ICD-10 - B35.1) Response to treatment,Uncha nged 06/11/2023 Pain in right toe(s) (ICD-10 - M79.674) 11/15/2023 Tinea unguium (ICD-10 - B35.1) Response to treatment,Uncha nged 03/25/2024 Pain in right toe(s) (ICD-10 - M79.674) 03/25/2024 Onychomycosis (ICD-10 - B35.1) 11/15/2023 Pain in right toe(s) (ICD-10 - M79.674) 06/11/2023 Pain in left toe(s) (ICD-10 - M79.675) 05/06/2023 Tinea pedis (ICD-10 - B35.3) 11/15/2023 Pain in left toe(s) (ICD-10 - M79.675) 03/25/2024 Pain in left toe(s) (ICD-10 - M79.675) 11/15/2023 Tinea pedis (ICD-10 - B35.3) Plan Of Treatment Pending Test Test Name Order Date *Liver Function Test (LFT) 03/25/2024 Insurance Providers Payer Name Payer Address Payer Phone Subscriber Number Group Number Insured Name Patient Relationship to Insured Coverage Start Date Coverage End Date [facility] SCO Claims [address] [place] [id number] Deanna Upton Self - patient is the insured Medical (General) History Medical History History ICD Code Bipolar disorder Anemia Surgical History Surgery Date(Month/Year) 04/07/2022 Hospitalization History Reason Date(Month/Year)
--- NOTE | 2024-04-01 08:09 | A.OFFVIS_ITS ---
Intake Visit Reasons: s/p Cyst axilla Intake Note: Patient here s/p Lt axilla cyst excision. Reports incision healing well. Patient c/o: itchy, some bruising. Beam Department Supervisor Required: No Accompanied by: Self / Same As Patient Allergies citalopram [From Celexa] Allergy (Intermediate, Verified 04/01/24 08:10) panic attacks sertraline Adverse Reaction (Intermediate, Verified 04/01/24 08:10) diarrhea HPI Comments Details: Patient presents for follow-up status post left axillary cyst excision. No wound issues or complaints. Pathology is benign. [facility] Medical History Atypical nevi control counseling Bipolar disorder, unspecified Surgical History (Updated 04/01/24 @ 08:27 by Ace Wolfe MD) Sebaceous cyst of left axilla (03/25/24) Hx of tubal ligation Status post debridement Family History Father Medical history unknown Mother Medical history unknown Daughter In good health Sister In good health Brother No problems noted. Son No problems noted. Social History Household Members: None Housing: Apartment Do you presently have visiting nurse or other home services: No Alcohol intake: never Comment: PATIENT ASLEEP Patient Tobacco Use Status: Current everyday Tobacco user Tobacco use type: Cigarette Cigarette Packs Per Day: 0.5 Cigarettes Per Day: 4 e-Cigarette/Vaping Use: Never Used Second Hand Smoke Exposure: No Substance Use Type: Hallucinogens service: No Current occupational status: unemployed Sexual orientation: Straight/Heterosexual Cognitive needs: No Hearing needs: No Vision needs: No Female Reproductive History Menstrual Age of Menarche: 12 Physical Exam Extrem Other: Incision clean dry and intact healing very well Assessment & Plan Assessment & Plan (1) Encounter for postoperative wound check: Code(s): Z48.89 - Encounter for other specified surgical aftercare Category: Surgical Plan Patient was been given local wound instructions, and will otherwise follow-up p.r.n.. All questions answered. Coding Level of Care Code Global (26517) Diagnoses Encounter for postoperative wound check Z48.89
== END 2024-04-01 08:14 | disposition home or self-care (01) ==
PROVIDERS: PCP Physician Assistant; Visit Provider Surgery
DX: Z48.89 Encounter for other specified surgical aftercare (principal)
CPT/HCPCS: 99024

== ENCOUNTER → 2024-04-01 07:59 | Outpatient (BNVA) | payer OTHER, SELFPAY | PROVIDERS: PCP Physician Assistant; Visit Provider Surgery | DX: Z09 Encounter for follow-up examination after completed treatment for conditions other than malignant neoplasm (principal); Z87.2 Personal history of diseases of the skin and subcutaneous tissue; Z98.890 Other specified postprocedural states | CPT/HCPCS: 99212 ==

== ENCOUNTER 2024-05-14 10:51 | Outpatient (AMB) | payer OTHER, SELFPAY ==
[2024-05-14 10:52] VITALS: BP 116/74; PULSE 75; O2SAT 97; BMI 25.3
--- NOTE | 2024-05-14 10:52 | MHC.PC.OV ---
Vital Signs 05/14/24 10:52 Height 5 ft 5 in Weight 152 lb 2 oz BMI 25.3 BP 116/74 Blood Pressure Location Lt brachial Position Sitting Pulse 75 Pulse Source Pulse Oximeter Pulse Oximetry (%) 97 Oxygen Delivery Method Room Air Intake Visit Reasons: f/u Smoking cessation/ labs results. Inventory Manager Required: No Accompanied by: Self / Same As Patient Allergies citalopram [From Celexa] Allergy (Intermediate, Verified 05/14/24 11:07) panic attacks sertraline Adverse Reaction (Intermediate, Verified 05/14/24 11:07) diarrhea Medication List - Last Reconciled 05/14/24 by Elliot Hsu PA-C nicotine 1 patch transdermal DAILY 14 days nicotine 1 patch transdermal DAILY 14 days Tobacco use date assessed: 05/14/24 Dental Screening Dental Screen Date: 05/14/24 Did you have a dental visit in the last 12 months?: Yes Did you have a dental problem in the last 6 months where you did not have access to dental care?: No Was dental information given to patient?: Patient has dentist HPI f/u Smoking cessation/ labs results. HPI Details Deanna is a 33 year female here today for For follow-up visit Patient has a past medical history significant major depressive disorder substance abuse history, smoker patient recently seen by general surgeon and had a sebaceous cyst in her left axilla removed. .. Smoker: She is struggling with smoking cessation. She is now willing to try nicotine patches. .. Bipolar disorder: Has been suffering with bipolar disorder and depression for quite some time. She has seen a mental health therapist in the past though unfortunately her mental health therapist moved out of state. She is willing to try to get Frank up with a new mental health therapist. She is not interested in any medication at this time. Today we did review patient's labs which did show slightly elevated liver enzymes. Of note with the time she had taken labs she was on antibiotics for a UTI. Will recheck lipid panel. 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 as she is looking to start antifungal treatment Laboratory Tests 12/28/19 01/03/20 04/15/20 22:24 03:52 15:56 RBC 4.19 L 4.14 L Hgb Creatinine 0.66 Random Glucose 100 Fasting Glucose AST ALT SARS-CoV-2 (PCR) NOT DETECTED 03/23/24 12:37 RBC 4.13 L Hgb 12.1 Creatinine Random Glucose Fasting Glucose 104 H AST 36 H ALT 51 H SARS-CoV-2 (PCR) PFSH Medical History (Updated 05/14/24 @ 11:31 by Elliot Hsu PA-C) Bipolar disorder, unspecified Atypical nevi control counseling Surgical History Sebaceous cyst of left axilla (03/25/24) Hx of tubal ligation Status post debridement Family History Father Medical history unknown Mother Medical history unknown Daughter In good health Sister In good health Brother No problems noted. Son No problems noted. Social History Household Members: None Housing: Apartment Do you presently have visiting nurse or other home services: No Alcohol intake: never Comment: PATIENT ASLEEP Patient Tobacco Use Status: Current everyday Tobacco user Tobacco use type: Cigarette Cigarette Packs Per Day: 0.5 Cigarettes Per Day: 4 e-Cigarette/Vaping Use: Never Used Second Hand Smoke Exposure: No Substance Use Type: Hallucinogens service: No Current occupational status: unemployed Sexual orientation: Straight/Heterosexual Cognitive needs: No Hearing needs: No Vision needs: No Female Reproductive History Menstrual Age of Menarche: 12 Questionnaire PHQ-9 Over the last 2 weeks, how often have you been bothered by any of the following problems? 1. Little interest or pleasure in doing things: not at all 2. Feeling down, depressed, or hopeless: not at all 3. Trouble falling or staying asleep, or sleeping too much: not at all 4. Feeling tired or having little energy: not at all 5. Poor appetite or overeating: not at all 6. Feeling bad about yourself - or that you are a failure or have let yourself or your family down: not at all 7. Trouble concentrating on things, such as reading the newspaper or watching television: not at all 8. Moving or speaking so slowly that other people could have noticed. Or the opposite - being so fidgety or restless that you have been moving around a lot more than usual: not at all 9. Thoughts that you would be better off or of hurting yourself in some way: not at all Total score: 0 Depression Screening Interpretation: Negative Depression Screening Done: Yes 72202 - PHQ-9 Billing: Yes Source: Developed by Drs. Ranjeet Fallon, Selma Bolivar, Shaka Spicer and colleagues, with an educational arcenio from [employer]. Thrive Questionnaire Date Thrive assessed: 05/14/24 I am a: Patient What is your living situation today?: I have a steady place to live Within the past 12 months, did the food you bought not last and you didn't have the money to get more?: Never true Within the past 12 months, did you worry whether your food would run out before you got money to buy more?: Never true Do you have trouble paying for medicines?: No Do you have trouble getting transportation to medical appointments?: No Do you have trouble paying your heating and electricity bill?: No Do you have trouble taking care of your child, family member or friend?: No Do you have trouble with day-to-day activities such as bathing, preparing meals, shopping, managing finances, etc.?: No Are you currently unemployed and looking for a job?: No Are you interested in more education?: No Please select the resources that you would like help with: None Currently or been in a relationship where the following occur: No concerns reported THRIVE Score: 0 AUDIT C Alcohol Use Questionnaire (AUDIT-C) 1. How often do you have a drink containing alcohol?: Never 2. How many drinks containing alcohol do you have on a typical day when you are drinking?: 1 or 2 (0) 3. How often do you have six or more drinks on one occasion?: Never Total Score: 0 NORIS-7 AMB Questionnaire NORIS-7 Date NORIS - 7 assessed: 05/14/24 Feeling nervous, anxious, or on edge: 0 = Not at all Not being able to stop or control worryin = Not at all Worrying too much about different things: 0 = Not at all Trouble relaxin = Not at all Being so restless that it is hard to sit still: 0 = Not at all Becoming easily annoyed or irritable: 0 = Not at all Feeling afraid as if something awful might happen: 0 = Not at all Total NORIS-7 score (0-4 normal; 5-9 mild; 10-14 moderate; 15-21 severe): 0 Source: Developed by Drs. Ranjeet Fallon, Selma Bolivar, Shaka Spicer and colleagues, with an educational arcenio from [employer]. NORIS-7 Assessment Billing NORIS-7 Assessment Tool: NORIS-7 Assessment 89073 Review of Systems Const Denies headache(s) Eyes Denies loss of vision ENT Denies vertigo, Denies dizziness, Denies headache(s) and Denies sore throat Card Denies chest pain, Denies leg edema and Denies lightheadedness Resp Denies cough, Denies hemoptysis and Denies wheezing GI Denies abdominal pain, Denies melena, Denies constipation, Denies diarrhea and Denies vomiting Denies urinary frequency, Denies dysuria and Denies urinary urgency Musc Denies arthralgias, Denies joint swelling, Denies numbness and Denies tingling Neuro Denies Abnormal speech present, Denies behavioral changes, Denies vertigo, Denies dizziness, Denies headache(s), Denies loss of vision, Denies memory loss, Denies numbness and Denies tingling Psych Denies anxiety, Denies behavioral changes, Denies depression, Denies memory loss and Denies panic attacks Tayo/Lymph Denies easy bleeding and Denies easy bruising Aller/Immun Denies wheezing Physical exam (Primary Care) Vital Signs: Last Vital Signs Pulse 75 05/14/24 10:52 BP 116/74 05/14/24 10:52 Pulse Ox 97 05/14/24 10:52 Oxygen Delivery Method Room Air 05/14/24 10:52 BMI result Body Mass Index 25.3 Tobacco/Smoking Status: Tobacco use Status Tobacco use date assessed 05/14/24 05/14/24 11:00 Patient Tobacco Use Status Current everyday Tobacco 05/14/24 11:00 Tobacco use type Cigarette 05/14/24 11:00 e-Cigarette/Vaping Use Never Used 05/14/24 11:00 Are you ready to quit: Yes Tobacco cessation counseling provided: Yes Items discussed: Nicotine replacement Relapse Prevention: discussed the importance of a supportive environment, discussed negative mood or depression after quitting, weight gain after smoking is common and discussed dietary, exercise and/or lifestyle changes Number of minutes spent counselin CPT code: 62193 - 4-10 Minutes PHQ-9: PHQ-9 Score PHQ-9: Total score 0 05/14/24 11:09 Depression Screening Interpretation: Negative Thrive Assessment: Date of Thrive Assessment Date Thrive assessed 05/14/24 05/14/24 11:00 Currently or been in a relationship where the following occur: No concerns reported Const General: healthy appearing, no acute distress, alert and awake Nutritional Appearance: well nourished Orientation/consciousness: oriented to person, oriented to place and oriented to time HENMT Ears: TM's normal bilaterally General nose exam: Normal nasal mucous membranes and turbinates present Eyes Conjunctivae: conjunctivae normal Sclerae: sclerae normal Pupils: Equal, round and reactive pupils present Neck Neck: Yes no lymphadenopathy and Yes no JVD Thyroid: Thyroid normal Carotids: no bruits Resp Effort & Inspection: normal respiratory effort and not tachypneic Auscultation: no crackles, no rales, no rhonchi and no wheezes Cardio Rate: regular rate Rhythm: regular rhythm Heart sounds: no murmurs and normal S1 and S2 GI Palpation (GI): Soft to palpation, nontender, no hepatomegaly and no splenomegaly Auscultation: normal bowel sounds Skin General skin exam: no rashes or lesions noted and dry skin Neuro General: oriented to person, oriented to place and oriented to time Cranial nerves: Yes Equal, round and reactive pupils present Speech: No Abnormal speech present Gait exam (Neuro): Normal gait present Motor exam (neuro): no tremor noted Extrem Right upper extremity: full ROM Left upper extremity: full ROM Right lower extremity: full ROM; no edema Left lower extremity: full ROM; no edema Psych Mental Status: mental status grossly normal Speech and movement: Normal speech and movement present Affect: normal affect Attitude: cooperative Thought process: Normal thought process present Coding Level of Care Code Est Pt Level 4 (55305) Diagnoses Elevated liver enzymes R74.8 MDD (major depressive disorder), recurrent episode, moderate F33.1 Smoking F17.200 PTSD (post-traumatic stress disorder) F43.10 Bipolar affective disorder, currently depressed, mild F31.31 Active/Remission status: currently active Current bipolar episode type: depressed Current episode severity: mild Additional Codes NORIS-7 Assessment Billing - NORIS-7 Assessment Tool: NORIS-7 Assessment 85275 ([id number]) PHQ-9 - 05001 - PHQ-9 Billing: Yes ([id number]) Vital Signs *Quality* - CPT code: 53616 - 4-10 Minutes ([id number]) Assessment & Plan Assessment & Plan (1) Elevated liver enzymes: Code(s): R74.8 - Abnormal levels of other serum enzymes Category: Medical Plan: Noted slightly elevated liver enzymes on most recent labs. This was in the setting of having UTI and on antibiotics. Will recheck liver labs. Otherwise she denies drinking alcohol or taking Tylenol/ supplements (2) MDD (major depressive disorder), recurrent episode, moderate: Code(s): F33.1 - Major depressive disorder, recurrent, moderate Category: Medical Plan: As per HPI patient does seem to still be suffering with depression and anxiety. She is willing to be recent up with a mental health therapist to work on her mental health. She does have PTSD as well and has had plenty of trauma in her life she needs to work through. She is not interested in mental health medication at this time. (3) Smoking: Code(s): F17.200 - Nicotine dependence, unspecified, uncomplicated Category: Social Hx Plan: She does understand she needs to quit smoking. She has struggled with quitting smoking both cigarettes and marijuana. She is willing to now try the nicotine patches. (4) PTSD (post-traumatic stress disorder): Code(s): F43.10 - Post-traumatic stress disorder, unspecified Category: Medical Plan: As above (5) Bipolar disorder, unspecified: Code(s): F31.9 - Bipolar disorder, unspecified Category: Medical Qualifiers: Active/Remission status: currently active Current bipolar episode type: depressed Current episode severity: mild Qualified Code(s): F31.31 - Bipolar disorder, current episode depressed, mild Plan: Patient was previously on medication for her bipolar and depression and was speaking with a mental health therapist though not at this time. She is willing to be reset up with a mental health therapist to start working on her childhood trauma. Orders: Orders Liver Panel Today R74.8 - Abnormal levels of other serum enzymes Referrals Counseling Referral F31.9 - Bipolar disorder, unspecified Medications: Refilled nicotine 1 patch transdermal DAILY 14 ea 0RF 14 days F17.200 - Nicotine dependence, unspecified, uncomplicated nicotine 1 patch transdermal DAILY 14 ea 0RF 14 days F17.200 - Nicotine dependence, unspecified, uncomplicated
--- OUTSIDE RECORDS SUMMARY | 2024-05-14 13:52 | XMS_ITS ---
Author Organization [facility] Address [address] [place] [address] Care Team Providers Care Store Coordinator Name Role Phone Elliot Hsu Primary Care Provider Unavailab Lilly Hernandes Unavailable [phone] Encounters Encounter Location Date Provider Diagnosis [address] [address] 02/03/2024 Lilly Rm Plan Of Treatment No Information Progress Notes * Deanna TRINIDADDOB: 0 (33 yo F)Acc No.[id number]:02/03/2024 Progress Note Patient:?Deanna TRINIDAD Provider:?Lilly Rm DPM :1990???Age:33 Y???Sex:Female D ate:02/03/2024 Address:[address] [place], [place] [id number] Pcp:Elliot Hsu Subjective: * Chief Complaints: * ??? * Medical History:? Objective: * Vitals:? Assessment: Plan: * Treatment: * Images: * The named appointment provid er may or may not be the originator of this progress note, and it is not deemed complete until electronically signed by the appointment provider. Sign off status: Pending * Provider:?Lilly Rm DPM Date:?1 04/05/2023 Generated for Sayi anna/Faanival/eTransmitting on:?05/14/2024 01:52 PM EDT
--- OUTSIDE RECORDS SUMMARY | 2024-05-14 13:52 | XMS_ITS ---
Author Organization [facility] Address [address] [place] [address] Care Team Providers Care Educational Interpreter Name Role Phone ShadiElliot Primary Care Provider Unavailab Lilly Hernandes [phone] REASON FOR VISIT same day rs 02/03/24 Encounters Encounter Location Date Provider Diagnosis [facility] [address] [place] [address] 02/03/2024 Lilly Rm Plan Of Treatment No Information Progress Notes * Deanna UPTONDOB: 0 (33 yo F)Acc No.[id number]:02/03/2024 Patient:?Deanna UPTON :1990???Age:33 Y???Sex:Female Address:[address] [place] [address] [address], [place], [address] * true * Date:? Generated for Printi ng/Fabrandyg/eTransmitting on:?05/14/2024 01:52 PM EDT
--- OUTSIDE RECORDS SUMMARY | 2024-05-14 13:52 | XMS_ITS | Patient Health Record ---
[facility] Address [address] [place] [address] Care Team Providers Care Contact Lens Inspector Name Role Phone Elliot Hsu Primary Care Provider Unavailab Lilly Hernandes Unavailable [phone] Ant Donovan Unavailable [phone] Lovely Sy Unavailable [phone] Allergies Allergen (clinical drug ingredient) Drug/Non Drug [...] W/U Status Risk Notes Problem Tinea unguium ([id number]) Tinea unguium (B35.1) Active confirmed Response to treatment,Un changed Vital Signs Blood pressure diastolic 80 mm Hg 03/25/2024 Height 5ft5in in 03/25/2024 Blood pressure systolic 120 mm Hg 03/25/2024 Weight 205 lbs 03/25/2024 BMI 34.11 kg/m2 03/25/2024 Encounters Encounter Location Date Provider Diagnosis [address] [address] 06/11/2023 Ant Donovan Tinea unguium B35.1 ; Pain in right toe(s) M79.674 and Pain in left toe(s) M79.[address] [address] 11/15/2023 Lovely Sy Tinea unguium B35.1 ; Pain in right toe(s) M79.674 ; Pain in left toe(s) M79.675 and Tinea pedis B35.[address] [address] 03/25/2024 Lilly Rm Pain in right toe(s) M79.674 ; Onychomycosis B35.1 and Pain in left toe(s) M79.[address] [address] 09/10/2023 Ant Donovan [address] [address] 11/01/2023 Ant Donovan [address] [address] 11/12/2023 Ant Donovan [address] [address] 12/30/2023 Lovely Sy [address] [address] 01/28/2024 Lilly Rm [address] [address] 02/03/2024 Lilly Rm Assessments Encounter Date Diagnosis (ICD Code) Assessment Notes Treatment Notes Treatment Clinical Notes Section Notes 06/11/2023 Tinea unguium (ICD-10 - B35.1) Response to treatment,Uncha nged 06/11/2023 Pain in right toe(s) (ICD-10 - M79.674) 11/15/2023 Tinea unguium (ICD-10 - B35.1) Response to treatment,Uncha nged 03/25/2024 Pain in right toe(s) (ICD-10 - M79.674) 03/25/2024 Onychomycosis (ICD-10 - B35.1) 11/15/2023 Pain in right toe(s) (ICD-10 - M79.674) 06/11/2023 Pain in left toe(s) (ICD-10 - M79.675) 11/15/2023 Pain in left toe(s) (ICD-10 - M79.675) 03/25/2024 Pain in left toe(s) (ICD-10 - M79.675) 11/15/2023 Tinea pedis (ICD-10 - B35.3) Plan Of Treatment Pending Test Test Name Order Date *Liver Function Test (LFT) 03/25/2024 Insurance Providers Payer Name Payer Address Payer Phone Subscriber Number Group Number Insured Name Patient Relationship to Insured Coverage Start Date Coverage End Date [facility] [employer] Claims [address] [place] [phone] [id number] Deanna Upton Self - patient is the insured Medical (General) History Medical History History ICD Code Bipolar disorder Anemia Surgical History Surgery Date(Month/Year) 04/07/2022 Hospitalization History Reason Date(Month/Year)
--- OUTSIDE RECORDS SUMMARY | 2024-05-14 13:52 | XMS_ITS | Clinical Summary ---
Author Organization [facility] Address [address] [place] [address] Care Team Providers Care Senior Business Development Manager Name Role Phone Unavailable Primary Care Provider Unavailabl e Social History Tobacco Use Types Packs/Day Years Used Date Smoking Tobacco: Never Assessed Comments Unknown Sex and Gender Information Value Date Recorded Sex Assigned at Not on file Legal Sex Female 8:30 AM EST Gender Identity Not on file Sexual Orientation Not on file Plan of Treatment Health Maintenance Due Date Last Done Comments DTaP,Tdap,and Td Vaccines (1 - Tdap) 2008 Hepatitis B Vaccines (1 of 3 - 19+ 3-dose series) 2008 Cervical Cancer Screening: P ap Smear 2010 COVID-19 Vaccine ( - 2023-2 5 season) 2023 Influenza Vaccine (#1) 2023 [...] patient's age to complete this topic Meningococcal B Vacine Aged Out No lo nger eligible based on patient's age to complete [...]
--- OUTSIDE RECORDS SUMMARY | 2024-05-14 13:52 | XMS_ITS ---
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 Name Role Phone Elliot Hsu Primary Care Provider Unavailab Lilly Hernandes Unavailable [phone] Allergies Allergen (clinical drug ingredient) Drug/Non Drug Allergy documented on EMR Reaction Allergy Type Onset Date Status citalopram Citalopram panic attacks Drug Allergy A ctive sertraline Sertraline diarrhea Drug Allergy Activ e REASON FOR VISIT Fungal Nails Medications Medication SIG (Take, Route, Frequency, Duration) [...] Once a day for 30 day(s) Not-Taking Vital Signs Height 5ft5in in 03/25/2024 Weight 205 lbs 03/25/2024 BMI 34.11 kg/m2 03/25/2024 Blood pressure systolic 120 mm Hg 03/25/19 25 Blood pressure diastolic 80 mm Hg 025 Encounters Encounter Location Date Provider Diagnosis [facility] [address] [place] [address] 03/25/2024 Lilly Rm Pain in right toe(s) M79.674 ; Onychomycosis B35.1 and Pain in left toe(s) M79.675 Assessments Encounter Date Diagnosis (ICD Code) Assessment Notes Treatment Notes Treatment Clinical Notes Section Notes 03/25/2024 Pain in right toe(s) (ICD-10 - M79.674) 03/25/2024 Onychomycosis (ICD-10 - B35.1) 03/25/2024 Pain in left toe(s) (ICD-10 - M79.675) Plan Of Treatment Pending Test Test Name Order Date *Liver Function Test (LFT) 03/25/2024 Next Appt Details Follow Up: 2-3 Months, [place] n: Progress Notes * Deanna TRINIDADDOB: 0 (33 yo F)Acc No.[id number]:03/25/2024 Progress Note Patient:?Deanna TRINIDAD Provider:?Lilly Rm DPM :1990???Age:33 Y???Sex:Female D ate:03/25/2024 Address:[address] [place] [address] [id number] Pcp:Elliot Hsu Subjective: * Chief Complaints: * ???Fungal Nails * HPI: ???Painful Nails:?Nature:?aching, tender, discolored, thick.?Location:?all toes both feet.?Duration:?several months.?Course:?worse.?Aggravated by:?shoegear causing difficulty standing/walking.?Treatments:?none.? * ROS:?General/Constitutional:?Nausea?denies, denies.?Vomiting?denies, denies.?Hunger Thirst?denies, denies.?Loss appetite?denies, denies.?Chills?denies, denies.?Fatigue?denies, denies.?Fever?denies, denies.?Night Sweats denies, denies.?Unexplained weight loss?denies, denies.?Unexplained weight gain?denies, denies.?HEENTM:?Dentures?denies, denies.?Dizziness?denies, denies.?Glasses/contacts?denies, denies.?Retinopathy?denies, denies.?Blurred/double vision?denies, denies.?TMJ?denies, denies.?Discharge/drainage?denies, denies.?Implants?denies, denies.?Sore throat?denies, denies.?Dental implants?denies, denies.?Hard of hearing ?denies, denies.?Difficulty chewing/swallowing/speaking?denies, denies.?Nose bleeds?denies, denies.?Sore mouth?denies, denies.?Respiratory:?On Oxygen?denies, denies.?Pneumonia/pleurisy?denies, denies.?Bronchitis?denies, denies.?Emphysema?denies, denies.?Coughing?denies, denies.?Cough blood?denies, denies.?Shortness of breath?denies, denies.?Wheezing?denies, denies.?Cardiovascular:?Pacemaker?denies, denies.?MVP?denies, denies.?WPW?denies, denies.?CHF?denies, denies.?Heart attack?denies, denies.?Septal defect?denies, denies.?Rapid beat?denies, denies.?Chest pain ?denies, denies.?Atrial Fib.?denies, denies.?Murmur/Palpitations?denies, denies.?Gastrointestinal:?Hemorrhoids?denies, denies.?Stomach/Abdominal pain?denies, denies.?Dark blood stool?denies, denies.?Irritable bowel ?denies, denies.?Constipation?denies, denies.?Diarrhea?denies, denies.?Hematology:?Swelling?denies, denies.?Clots?denies, denies.?Varicose Veins?denies, denies.?Bruising?denies, denies.?Bleeding problem?denies, denies.?Genitourinary:?Blood urine?denies, denies.?Frequent/Painfu/urination/bladder control?denies, denies.?Kidney stones?denies, denies.?Infection (UTI)?denies, denies.?Nephropathy?denies, denies.?sex trans dis (STD)?denies, denies.?Prostate?denies, denies.?Musculoskeletal:?Hammertoes?denies, denies.?Bunions?denies, denies.?Back Pain?denies, denies.?Muscle Cramps/ Resting?denies, denies.?Muscle cramps / walking?denies, denies.?Generalized aches and pains?denies, denies.?Weakness?denies, denies.?Integ.:?Valderrama?denies, denies.?Scars?denies, denies.?Corns/calluses?denies, denies.?Ingrown nails?denies, denies.?Painful nails?admits,admits.?Open Sores?denies, denies.?Rashes?denies, denies.?Neurologic:?Difficulty sleeping?denies, denies.?Brain disorder?denies, denies.?Numbness?denies, denies.?Balance trouble?denies, denies.?Confusion?denies, denies.?Fainting/blackouts?denies, denies.?Tingling?denies, denies.?Tremors?denies, denies.? * Medical History:? * Surgical History:? 04/07/2022 * Hospitalization/Major Diagno stic Procedure:?Denies Past Hospitalization * Medications:?TakingCiclopiro x Olamine 0.77 % Cream 1 application to affected area Externally to feet Twice a day Ciclopirox 0.77 % Gel 1 application to affected area Externally Twice a day Taking Ciclopirox Olamine 0.77 % Cream 1 application to affected area Externally to feet Twice a day Taking Ciclopirox 0.77 % Gel 1 application to affected area Externally Twice a day Not-Taking/PRNPrenatal Vitamin-Folic Acid 1 MG Tablet 1 tablet with a meal Orally Once a day Not- Taking/PRN Vitamin-Folic Acid 1 MG Tablet 1 tablet with a meal Orally Once a day * Allergies:?Citalopram: panic attacksSertraline: diarrheayes[Allergies Verified] Objective: * Vitals:?Ht:5ft5in, Wt:205, B NE:34.11, Shoe size:6-7, BP:120/80mm Hg, Ht-cm: 165.1 cm, Wt-k.99 kg. 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.?ORIENTED:?person, place, and time.?Neurological: ?SENSORY:?Neurological exam reveals intact sensorium, pain sensation normal, vibration sensation intact, pinprick sensation is normal in the lower extremities, Pt denies, anesthesia, burning, paresthesia, tingling, B/L.?DEEP TENDON REFLEXES:?Achilles, 2/4, B/L.?Vascular: ?DP PULSES (B):?3/4, B/L.?PT PULSES (B):?3/4, B/L.?CAPILLARY FILL TIME:?immediate, all digits, B/L.?TROPHIC CONDITION-TEXTURE/ELASTICITY/TURGOR/HAIR GROWTH (B):?normal, B/L.?TEMPERTURE GRADIENT (C):?warm to cool, proximal to distal, B/L.?PIGMENTATION:?normal, B/L.?EDEMA (C):?absent, B/L.?Dermatologic: ?SKIN FINDINGS:?Skin exam reveals normal texture, elasticity, and turgor. There are no masses. The interspaces are clear.?Orthopedic: ?MUSCLE STRENGTH:?5/5 all groups in a symmetrical fashion , B/L.? Assessment: * Assessment: 1.?Pain in right toe(s) - M7 9.674???2.?Onychomycosis - B35.1 (Primary)???3.?Pain in left toe(s) - M79.675??? Plan: * Treatment: * Procedure Codes:? * Preventive Medicine:? ??Counseling:?Discussion:?-14: Office or other outpatient visit for the evaluation and management of an established patient, which required a medically appropriate history and/or examination and MODERATE level of DECISION MAKING for: 1 OR MORE CHRONIC PROBLEM(S) THATS WORSENING, 2 STABLE CHRONIC PROBLEMS, A NEWLY DIAGNOSED PROBLEM WITH UNCERTAIN PROGNOSIS, AN ACUTE COMPLICATED INJURY WITH MULTIPLE TREATMENT OPTIONS, OR AN ACUTE PROBLEM WITH ACCOMPANYING SYSTEMIC SYMPTOMS, THAT POSE(S) A MODERATE RISK OF MORBIDITY. THIS CONDITION MAY ALSO INCLUDE RX DRUG MANAGEMENT, OR A DECISON FOR MINOR SURGERY. The visit on the day of the encounter encompassed interpreting the data and educating the patient as to the nature of their condition, treatment options available according to their individual PMH, meds, allergies, and overall health/living conditions, as well as any potential risks or complications that may occur from a failure to adhere to, and participate in, the recommended course of therapy. The discussion included a complete verbal, and/or written explanation of the examination results, any x-rays taken, the proposed diagnosis, and outline of the treatment plan. A schedule for future care needs was also explained. The patient verbalized an understanding of the instructions at this time and agreed to be an active participant in their treatment. If the patient should think of any questions or concerns after the visit, I have encouraged the patient to call the office.?Fungal Nail Counseling:?The patient was counseled on the diagnosis, potential etiologies (including, but not limited to, environmental factors, genetic, immune deficiency), and the multiple treatment options for Onychomycosis. We discussed the risks and benefits of each option from performing no treatment, to ultraviolet light shoe treatment, to laser nail treatment, to applying topical antifungals, to taking oral antifungal medication, to surgical removal of the involved nail(s) with or without performing a matricectomy, or any combination thereof. We discussed the advantages and disadvantages of each of possible treatment and importance for adherence to all the recommended therapies for optimum success. This includes the necessity for weekly emery board self nail home debridements, and control the nail and skin environment as much as possible by only using a fresh, dry pair of shoes/socks each day, as well as keeping the skin as dry as possible through the use of sprays/powders if necessary. The patient was instructed to discard the emery board after use to prevent reinfection of the involved nail(s). We discussed the mycological and visual clinical effectiveness of topical vs oral antifungal treatments as well as each ones potential side effects and/or any patient- specific medication interactions. We discussed the reasons behind the important requirement of regular liver function testing with oral antifungal therapy for safety. Patient questions regarding use, dosage, successful outcomes, blood tests, and possible pharmaceutical interactions were reviewed and the patient verbalized that all answers were clearly understood.? ??Screening/Special Tests:?Fall Risk?Screening:?No falls in the past year ?FALLS: Screening for Future Fall Risk?Have you had any falls with injury in the past year??No * Follow Up:?2-3 Months * Images: * Sign off status: Completed true * Provider:?Lilly Rm DPM Date:?0 03/25/2024 Generated for Orquidea castillo/Deyvi/Kimitting on:?05/14/2024 01:51 PM EDT History and Physical Notes * HPI (History of Present Illness) Category Sub-Category Detail Notes Category Not es Painful Nails Aggravated by: shoegear causing difficulty standing/walking Course: worse Duration: several months Location: all toes both feet Nature: aching, tender, disc olored, thick Treatments: none Examination Category Sub-Category Detail Notes Category Not es Neurological SENSORY: Neurological exa m reveals intact sensorium, pain sensation normal, vibration sensation intact, pinprick sensation is normal in the lower extremities, Pt denies, anesthesia, burning, paresthesia, tingling, B/L DEEP TENDON REFLEXES: Achilles, 2/4, B/L Dermatologic SKIN FINDINGS: Skin exam reveal s normal texture, elasticity, and turgor. There are no masses. 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
== END 2024-05-14 11:49 | disposition home or self-care (01) ==
LOC: HO.HMCH 10:51
PROVIDERS: PCP Physician Assistant; Visit Provider Physician Assistant
DX: R74.8 Abnormal levels of other serum enzymes (principal); F31.31 Bipolar disorder, current episode depressed, mild; F17.210 Nicotine dependence, cigarettes, uncomplicated; F43.10 Post-traumatic stress disorder, unspecified

== ENCOUNTER → 2024-05-14 10:51 | Outpatient (BNVA) | payer OTHER, SELFPAY | PROVIDERS: PCP Physician Assistant; Visit Provider Physician Assistant | DX: R74.8 Abnormal levels of other serum enzymes (principal); F33.1 Major depressive disorder, recurrent, moderate; F43.10 Post-traumatic stress disorder, unspecified; F17.200 Nicotine dependence, unspecified, uncomplicated; Z71.6 Tobacco abuse counseling | CPT/HCPCS: 96127; 99212 ==